=== PATIENT | male | born 1945 | race Caucasian/White ===

== ENCOUNTER 2019-01-13 10:09 | Inpatient (IN) | payer MEDICARE, OTHER ==
[~2019-01-13] VITALS: Ht 182.9 cm; Wt 83.8 kg
[~2019-01-13 10:09] MED LIST: ACET325T45 PO; ALBU2.5V3 NEB; ASPI-903 PO; BISA10SU55 RC; FENT1PAT7 TD; FER325 PO; FOLI-49 PO; FURO40TA4 PO; HYDR-4011 PO; IPRATROPIUM; LACT237L38 PO; MAGN400O19 PO; MAGN400T28 PO; MINE133E23 PR; ONDA8TAB14 PO; POTA20TA96 PO; PROC10TA10 PO; UMEC1DIS INHALATION; VITA100T7 PO
[2019-01-13] MEDS ORDERED: IPRATROPIUM (NEB) 0.5 MG/2.5 ML AMP INH STA (10:42)
[2019-01-13] MEDS ORDERED: ALBUTEROL 0.5% (NEB) 2.5 MG/0.5 ML AMP INH STA (10:42)
[2019-01-13] MEDS ORDERED: SOD CHLORIDE 0.9% 1,000 ML IV STA (10:42)
[2019-01-13] MEDS ORDERED: CEFTRIAXONE 1 GM/50 ML (PMX) 50 ML IVPB STA (10:42)
[2019-01-13] MEDS ORDERED: AZITHROMYCIN 500MG/NS (PMX) 250 ML IV STA (10:42)
[2019-01-13] MEDS ORDERED: DILTIAZEM 25 MG INJ IV STA (10:42)
[2019-01-13] MEDS ORDERED: DILTIAZEM-D5W 125MG/125ML DRIP 125 ML IV STA (10:42)
--- NOTE | 2019-01-13 12:03 | ERD ---
ER Documentation Chief Complaint Chief Complaint pt aletha OCHOA from [facility] with c/o tachycardia HPI This is a 73-year-old male with a past medical history of metastatic lung cancer to the liver, past fall with a known healing right clavicle fracture, currently residing at a [facility] facility, who is presenting for faint palpitations, significant Tachycardia, mild shortness of breath and a cough beginning this morning. The patient denies any chest pain or chest tightness or pleuritic pain. He does not endorse lightheadedness or dizziness. He does not endorse nausea or vomiting. The patient denies feeling sick recently. The patient denies fever or chills. The patient has had no headache or vision changes. The patient does not endorse neck or back pain. The patient denies abdominal pain. The patient denies changes to bowel movements or urination. The patient has had no focal deficits. The patient has had no weakness or numbness or tingling to the face or extremities. ROS All systems reviewed and are negative except as per history of present illness. Allergies Allergies: Coded Allergies: No Known Allergy (Unverified , 01/13/19) PMhx/Soc Hx Neurological Disorder: No Hx Respiratory Disorders: No Hx Cardiac Disorders: No Hx Psychiatric Problems: No Hx Miscellaneous Medical Probl: Yes (LUNG CANCER MET TO LIVER; FALL) Hx Alcohol Use: No Hx Substance Use: No Hx Tobacco Use: No Smoking Status: Never smoker FmHx Family History: No diabetes Physical Exam Vitals Vital Signs Date Temp Pulse Resp B/P (MAP) Pulse Ox O2 O2 Flow FiO2 Time Delivery Rate 01/13/19 2.0 11:16 01/13/19 98.3 93 20 124/54 100 Mask 8.0 11:15 (77) 01/13/19 134 20 98 21 11:02 01/13/19 Nasal 3 10:30 Cannula 01/13/19 98.3 141 26 123/68 97 10:20 (86) Physical Exam Const: No apparent distress, well-developed, well-nourished Head: Normocephalic, Atraumatic Eyes: Normal Conjunctiva. ENT: Normal External Ears, Nose and Mouth. Neck: Full range of motion. No meningismus. Resp: Mild increased work of breathing. Tight breath sounds with bilateral inspiratory and expiratory wheezes. Decreased breath sounds on the right. Cardio: Regular rhythm. Tachycardia. No murmurs, rubs or gallops Abd: Soft, non tender, non distended. Normal bowel sounds Skin: No petechiae or rashes Back: No midline tenderness. No CVA tenderness Ext: No cyanosis, or edema Neur: Awake and alert, oriented 4. Cranial nerves intact. No facial droop. Normal strength, sensation and coordination. Psych: Normal Mood and Affect Result Diagram: 01/13/19 1031 01/13/19 1039 Results 24 hrs Laboratory Tests Test 01/13/19 10:31 01/13/19 10:39 White Blood Count 8.6 10^3/ul Red Blood Count 4.12 10^6/ul Hemoglobin 10.1 g/dl Hematocrit 33.1 % Mean Corpuscular Volume 80.3 fl Mean Corpuscular Hemoglobin 24.5 pg Mean Corpuscular Hemoglobin Concent 30.5 g/dl Red Cell Distribution Width 17.5 % Platelet Count 410 10^3/UL Mean Platelet Volume 8.3 fl Immature Granulocytes % 0.200 % Neutrophils % 78.9 % Lymphocytes % 10.5 % Monocytes % 10.0 % Eosinophils % 0.3 % Basophils % 0.1 % Nucleated Red Blood Cells % 0.0 /100WBC Immature Granulocytes # 0.020 10^3/ul Neutrophils # 6.8 10^3/ul Lymphocytes # 0.9 10^3/ul Monocytes # 0.9 10^3/ul Eosinophils # 0.0 10^3/ul Basophils # 0.0 10^3/ul Nucleated Red Blood Cells # 0.0 10^3/ul Prothrombin Time 17.0 Sec Prothrombin Time Ratio 1.3 INR International Normalized Ratio 1.37 Sodium Level 132 mmol/L Potassium Level 3.9 mmol/L Chloride Level 101 mmol/L Carbon Dioxide Level 23 mmol/L Anion Gap 8 Blood Urea Nitrogen 16 mg/dl Creatinine 0.62 mg/dl Est Glomerular Filtrat Rate mL/min mL/min Glucose Level 183 mg/dl Calcium Level 8.1 mg/dl Troponin I < 0.012 ng/ml B-Type Natriuretic Peptide 2880 PG/ML Current Medications Medications Dose Sig/Caio Start Time Status Last (Trade) Ordered Route PRN Stop Time Admin Dose Reason Admin Diltiazem 20 mg ONCE STAT 01/13/19 DC 01/13/19 HCl IV 10:42 01/13/19 11:04 (Cardizem Iv) 10:50 Diltiazem 125 ml @ 5 ONCE STAT 01/13/19 HCl mls/hr IV 10:42 01/14/19 11:41 Sodium 1,000 ml @ Q1H STAT 01/13/19 01/13/19 Chloride 1,000 mls/hr IV 10:42 01/13/19 11:16 11:41 Ipratropium 1.5 mg ONCE STAT 01/13/19 DC 01/13/19 Wrights INH 10:42 01/13/19 11:01 (Atrovent 10:50 0.02% (Neb)) Albuterol 15 mg ONCE STAT 01/13/19 DC 01/13/19 (Proventil INH 10:42 01/13/19 11:02 0.5% (Neb)) 10:50 Ceftriaxone 50 ml @ ONCE STAT 01/13/19 DC 01/13/19 Sodium 100 mls/hr IVPB 10:42 01/13/19 11:05 11:11 Azithromycin 250 ml @ ONCE STAT 01/13/19 250 mls/hr IV 10:42 01/13/19 11:41 Procedures/MDM MDM The patient's presentation warrants further investigation. Previous medical records, if available, were reviewed. LABS The patient's laboratory testing was obtained and reviewed. No emergent treatment was required unless described below. CBC: Normocytic anemia, not emergent. No E/o systemic infection or thrombocytopenia Chemistry: No E/o severe acidosis or alkalosis or renal failure or diabetic ketoacidosis. Mild hyponatremia, likely not emergent, could be related to pneumonia. PT/INR: No E/o significant coagulopathy Lactate: 2.0 Troponin: No E/o acute ischemia BNP: Elevated EKG EKG read by me: Rate/Rhythm: Tachycardia in a pattern that appears to be a 2-1 AV block, c onsistent with atrial flutter. Intervals: Unremarkable QRS and QTc. Mary D: Normal Impression: No evidence of acute ischemia. Atrial flutter. IMAGING Imaging and Radiology interpretation reviewed. CXR FINDINGS: 8 cm right suprahilar mass is unchanged. There is increased small right pleural effusion and right basilar atelectasis. Left lung is clear. Prominent interstitial markings are present likely chronic or senescent in nature.. The Calcific atherosclerosis of the aorta is present. . The cardiomediastinal silhouette is unremarkable. The osseous structures are intact. There is a nondisplaced fracture at the right distal clavicle. IMPRESSION: Increased right pleural effusion and basilar atelectasis. Stable 8 cm right suprahilar mass. Underlying chronic interstitial lung disease. Right distal clavicular fracture. Electronically viewed and signed by .Tino Wilkes MD, on 01/13/2019 10:56 TREATMENT/DISPOSITION The patient presents for shortness of breath, palpitations and tachycardia. The patient does have symptoms concerning for a mild COPD exacerbation. The patient was treated with nebulized albuterol and ipratropium. I do not feel that steroids are required at this time. The patient was also found to be in atrial flutter. The patient was given a bolus of Cardizem and started on a Cardizem drip. The patient will require evaluation of this in the hospital. The patient does have a known left lung mass and lung cancer. The patient has had previous pleural effusions, but her right pleural effusion is increased today. This may require pleurocentesis in the hospital. The patient may benefit from pulmonology consultation. I do not see evidence of obvious pneumonia, and the patient's symptoms are unlikely to be consistent with an infectious etiology. That said, I cannot definitively rule out pneumonia superimposed on his pleural effusion. I did opt to treat the patient with Rocephin and azithromycin. I also did give the patient a liter of IV fluids. The patient's lactic is right at 2.0. I do suspect this to be elevated due to his COPD exacerbation, tachycardia and stress from his known pathology. I do not suspect sepsis and I do not feel the patient requires a full septic work-up. Additionally, the patient has a worsening pleural effusion, and I feel that a full sepsis bolus of IV fluids could be detrimental to the patient. Additionally, the patient's BNP is elevated, which could be concerning for a component of heart failure. The patient's chest xray does not reveal pneumothorax. The patient does not have a widened mediastinum and does not have signs or symptoms concerning for thoracic aortic aneurysm or dissection. The patient does not have pneumomediastinum or signs concerning for esophageal tear or rupture. The patient has no clinical or radiographic signs of pericardial effusion or tamponade. The patient does not have pneumoperitoneum and I have decreased suspicion of viscus perforation as possible referred pain. The patient is not tachypneic or hypoxic. The patient is breathing without pleuritic pain. The patient is not on hormonal therapy. The patient has no history of clotting or bleeding disorders. The patient has no calf tenderness. The patient has had no hemoptysis. I have decreased suspicion for PE. The patient's troponin is reassuring. While the patient's EKG reveals tachycardia, I do not see evidence of cardiac ischemia at this time. I have low suspicion for acute coronary syndrome. ADMISSION At this time, I feel that the patient requires admission for further evaluation and management. The patient will be admitted to panel in accordance with the patient's insurance. The patient was accepted by Dr. Navarro at 11:45 AM on January 13, 2019. DISCLAIMER Inadvertent spelling and grammatical errors are likely due to EHR/dictation software use and do not reflect on the overall quality of patient care. Note that the electronic time recorded on this note does not necessarily reflect the actual time of the patient encounter. Departure Diagnosis: Primary Impression: Atrial flutter Atrial flutter type: typical Qualified Codes: I48.3 - Typical atrial flutter Additional Impressions: COPD exacerbation Recurrent right pleural effusion History of lung cancer Normocytic anemia Hyponatremia Elevated brain natriuretic peptide (BNP) level Condition: Serious VON ESPOSITO MD Jan 13, 2019 11:45
[2019-01-13] MEDS ORDERED: ACETAMINOPHEN 325 MG TAB PO PRN (12:30)
[2019-01-13] MEDS ORDERED: ONDANSETRON 4 MG INJ IV PRN ×2 (12:30→14:30)
[2019-01-13] MEDS ORDERED: SENNA TAB PO PRN (14:30)
[2019-01-13] MEDS ORDERED: NACL 0.9% 3 ML SYG IV SCH (14:30)
[2019-01-13] MEDS ORDERED: ALBUTEROL 0.083% (NEB) 2.5 MG/3 ML AMP NEB PRN (14:30)
[2019-01-13] MEDS ORDERED: BISACODYL 10 MG SUPP PR PRN (14:30)
--- NOTE | 2019-01-13 14:52 | HP ---
Date/Time of Note Date/Time of Note DATE: 01/13/19 TIME: 14:35 Assessment/Plan VTE Prophylaxis SCD applied (from Nsg): Yes Pharmacological prophylaxis: LMWH Lines/Catheters IV Catheter Type (from Nrsg): Saline Lock Assessment/Plan Assessment/Plan 73 yo man with history of COPD, CAD s/p stent, metastatic cancer presents in rapid A flutter #Rapid A flutter - Patient has history of CAD. - For now will continue cardizem gtt and restart home meds. - First will rule out infection, blood and urine cultures ordered. Empiric ceftriaxone and azithro x24-48 hours. - Also patient appears slightly fluid overloaded. Will keep net even for now, consider diuresis in the AM depending on long goods drier recommendations. - Consulted Dr. Mcwilliams. #Metastatic cancer - Follows Dr. Montoya at [facility] - Last chemotherapy was 3 months ago. - Per POLST and discussion on admission, patient wants to be full code. - Lovenox for DVT ppx - On fentanyl patch 12 mcg for pain, norco prn breakthrough. #R pleural effusion - Likely malignant. - Currently not with severe dyspnea. Will hold off on thoracentesis. May improve with diuresis. #COPD - Continue LABA/inhaled steroid as well as PRN albuterol - Not in exacerbation. DVT: lovenox GI: PPI Family contact: Son Eliezer ([phone]) and daughter Sharon Dominique ([phone]) are next of kin. The patient is . Code: FULL Result Diagram: 01/13/19 1031 01/13/19 1039 HPI/ROS Admit Date/Time Admit Date/Time 13 January 2019 Hx of Present Illness Mr. Valverde is a 73 yo man with metastatic cancer who presents from SNF with A flutter with rapid rate. The patient is confused, he gave some history but most was taken from his son Eliezer at bedside. He has a metastatic cancer of unknown primary in the liver, brain, and lungs. He gets most of his care at [facility], his oncologist is Dr. Montoya. He got brain radiation and he had been on palliative chemotherapy but this was stopped 3 months ago. About three weeks ago was his most recent hospitalization at [facility] for a broken R collarbone. This was handled nonsurgically. His primary care doctor is Dr. Consuelo Ascencio. He was discharged to [facility] about 2 weeks ago. Previously he had lived with his sister and his son at home. The patient reports for about 1 week he gets intermittent episodes of palpitations which begin and self-resolve. He also reports increasing difficulty with swallowing. Today at the SNF he was noted to have a very rapid heart rate and had palpitations, so was sent to the emergency room. The patient also reports occasional dry cough. In the ED he was afebrile, tachy to 141, tachypenic to 26, BP 123/68. Troponin was negative. CBC and BMP unremarkable. CXR shows R pleural effusion. I spoke to the patient and his son Eliezer about his prognosis. The patient does have a signed POLST in the chart saying full code, and the patient confirmed he still wants this to be the case. There is some belief that they're waiting for the patient to "get stronger" off chemotherapy and maybe get another round in the future. The patient confirmed he wants his two adult children, Eliezer and Sharon, to be his medical decisionmakers in the event he is unable to. ROS The patient denies fever, chills, night sweats, weight loss, anorexia, headaches, vision changes, odynophagia, chest pressure, nausea, vomiting, abdominal pain, diarrhea, constipation, melena, dysuria, hematuria. PMH/Family/Social Past Medical History OR with stent placement in late . Metastatic cancer to lungs, liver, and brain. COPD Chronic cancer-related pain Medications Current Medications Diltiazem HCl 125 ml @ 5 mls/hr ONCE STAT IV Last administered on 01/13/19at 13:17; Admin Dose 5 MLS/HR; Start 01/13/19 at 10:42; Stop 01/14/19 at 11:41 Ondansetron HCl (Zofran Inj) 4 mg ER BRIDGE PRN IV NAUSEA/VOMITING; Start 01/13/19 at 12:30; Stop 01/14/19 at 12:29 Acetaminophen (Tylenol Tab) 650 mg ER BRIDGE PRN PO .MILD PAIN 1-3 OR TEMP; Start 01/13/19 at 12:30; Stop 01/14/19 at 12:29 IV Flush (NS 3 ml) 3 ml PER PROTOCOL IV ; Start 01/13/19 at 14:30; Status UNV Ondansetron HCl (Zofran Inj) 4 mg Q6H PRN IV NAUSEA/VOMITING; Start 01/13/19 at 14:30; Status UNV Pantoprazole (Protonix Tab) 40 mg DAILY@06 PO ; Start 01/14/19 at 06:00; Status UNV Enoxaparin Sodium (Lovenox) 40 mg DAILY SC ; Start 01/14/19 at 09:00; Status UNV Senna (Senokot) 2 tab BID PRN PO CONSTIPATION; Start 01/13/19 at 14:30; Status UNV Albuterol (Proventil 0.083% (Neb)) 2.5 mg Q4H PRN NEB SHORTNESS OF BREATH; Start 01/13/19 at 14:30; Status UNV Aspirin (Aspirin) 81 mg DAILY PO ; Start 01/14/19 at 09:00; Status UNV Bisacodyl (Dulcolax Supp) 10 mg DAILY PRN UT constipation; Start 01/13/19 at 14 :30; Status UNV Fentanyl (Duragesic 12 Mcg/Hr Patch) 1 patch Q72H TRANSDERM ; Start 01/13/19 at 14:30; Status UNV Folic Acid (Folic Acid) 1 mg DAILY PO ; Start 01/14/19 at 09:00; Status UNV Furosemide (Lasix) 40 mg DAILY PO ; Start 01/14/19 at 09:00; Status UNV Acetaminophen/ Hydrocodone Bitart ([place] (5/325)) 1 tab Q4 PRN PO PAIN LEVEL 6- 10; Start 01/13/19 at 14:30; Status UNV Magnesium Hydroxide (Milk Of Mag) 30 ml DAILY PO ; Start 01/14/19 at 09:00; Status UNV Miscellaneous Information 1 each DAILY INHALATION ; Start 01/14/19 at 09:00; Status UNV Ceftriaxone Sodium 50 ml @ 100 mls/hr Q24H IVPB ; Start 01/14/19 at 11:00; Status UNV Azithromycin 250 ml @ 250 mls/hr Q24H IVPB ; Start 01/14/19 at 11:00; Status UNV Coded Allergies: No Known Allergy (Unverified , 01/13/19) Past Surgical History Back surgery Lymph node biopsy Social History Previously lived with son and sister until about 1 month ago; now at SNF. He has a master's degree and previously worked as a computer systems hardware analyst. Alcohol Use: none Smoking Status: Former smoker (Previously smoked >40 pack years, quit 4 years ago) Drug Use: none Exam/Review of Systems Vital Signs Vitals Vital Signs Date Temp Pulse Resp B/P (MAP) Pulse Ox O2 O2 Flow FiO2 Time Delivery Rate 01/13/19 122 109/60 14:33 (76) 01/13/19 2.0 11:16 01/13/19 98.3 20 100 Mask 11:15 01/13/19 21 11:02 Exam Exam Gen: Frail appearing man in no acute distress. Eyes: Miotic pupils nonreactive, no icterus HEENT: Moist mucous membranes, clear oropharynx Neck: Supple, no lymphadenopathy, jugular venous distension to level of the mandible. Card: Tachycardic, no murmurs Pulm: Clear to auscultation bilaterally, scattered wheezing throughout. Abd: Soft, nontender to palpation, nondistended. Ext: Bilateral 1+ pitting edema to ankles. Skin: No jaundice. Warm, dry, well perfused. Neuro: Patient is confused. Oriented to self, oriented to year. Disoriented to month and day. Disoriented to location ("[place]"). LESLIE CESAR MD Jan 13, 2019 14:46
[2019-01-13] MEDS: FENTAnyl PATCH 12 MCG/HR TRANSDERM SCH (15:30)
--- NOTE | 2019-01-13 15:55 | CONS ---
Assessment/Plan Assessment/Plan Hospital Course (Demo Recall) New onset atrial fibrillation/flutter: Presumably started today as he was at a SNF and vitals are checked at least daily. Therefore he is a good candidate for amiodarone especially with his underlying metastatic lung cancer and short life expectancy. Rates are not well controlled and his BP is marginal. Not an anticoagulation candidate with brain mets. Acute on chronic diastolic CHF: unknown EF. On lasix at baseline. Mild CHF on exam in setting of afib Lung cancer with mets to brain/liver Right malignant pleural effusion CAD s/p PCI in the -start amiodarone drip -if converts, can d/c diltiazem drip. Otherwise continue for now -lasix 20mg IV BID -echo -further management per primary team Consultation Date/Type/Reason Admit Date/Time 13 January 2019 Date of Consultation: Jan 13, 2019 Type of Consult Cardiology Reason for Consultation atrial flutter/fib Requesting Provider: LESLIE CESAR MD Date/Time of Note DATE: 01/13/19 TIME: 15:46 Hx of Present Illness 73 yo M with a h/o lung cancer with mets to liver and brain (per brother he had XRT to the brain lesion and it is stable), CAD s/p PCI , chronic diastolic CHF, who was brought in from his SNF for tachycardia. He was at the SNF after sustaining a right clavicle fracture. He was found to have atrial fib/flutter and placed on a diltiazem drip. He is here with his son and brother. The pt is able to provide history. He denies any symptoms including chest pain, dyspnea, palpitations. No known arrhythmias in the past. Currently HR 110s-120s on diltiazem drip with SBP ~105 per hPI Past Medical History per hPI Home Meds Reported Medications Mineral Oil* (Fleet* Mineral Oil Enema) 133 Ml Oil, 133 ML [place] DAILY PRN for BOWEL PREP, ENEMA 01/13/19 Bisacodyl (Dulcolax) 10 Mg Supp.rect, 10 MG RC, SUPP.RECT 01/13/19 Magnesium Hydroxide* (Milk Of Magnesia*) 400 Mg/5 Ml Oral.susp, 30 ML PO DAILY, ML 01/13/19 Hydrocodone/Acetaminophen ([place] 5-325 Tablet) 1 Each Tablet, 1 EACH PO Q4 PRN for PAIN LEVEL 6-10, TAB 01/13/19 Ferrous Sulfate* (Ferrous Sulfate*) 325 Mg Tabec, 325 MG PO DAILY, TAB 01/13/19 Lactose-Free Food (Nutritional Supplement) 237 Ml Liquid, 60 ML PO TID 01/13/19 Acetaminophen* (Acetaminophen*) 325 Mg Tablet, 650 MG PO Q4H PRN for PAIN AND OR ELEVATED TEMP, #30 TAB 01/13/19 Vitamin E Acid Succinate (Vitamin E) 100 Unit Tablet, 200 UNIT PO DAILY, TAB 01/13/19 Umeclidinium Brm-Vilanterol Tr (Anoro Ellipta) 62.5-25 Mcg Disk.w.dev, 1 EACH INHALATION DAILY, #1 DISK 01/13/19 Prochlorperazine* (Prochlorperazine*) 10 Mg Tablet, 10 MG PO Q6H PRN for NAUSEA, TAB 01/13/19 Potassium Chloride* (Potassium Chloride*) 20 Meq Tablet.er, 20 MEQ PO DAILY, TAB.SA 01/13/19 Ondansetron (Ondansetron Odt) 8 Mg Tab.rapdis, 8 MG PO Q8 PRN for NAUSEA AND/OR VOMITING, TAB 01/13/19 Magnesium Oxide* (Magnesium Oxide*) 400 Mg Tablet, 800 MG PO DAILY, TAB 01/13/19 [Ipratropium Neb] No Conflict Check, 0.5 MG NEB Q4 PRN for SHORTNESS OF BREATH 01/13/19 Furosemide* (Furosemide*) 40 Mg Tablet, 40 MG PO DAILY, TAB 01/13/19 Folic Acid* (Folic Acid*) 1 Mg Tablet, 1 MG PO DAILY, TAB 01/13/19 Fentanyl Patch* (Duragesic Patch*) 12 Mcg/Hr Transdermal Patch, 1 PATCH TD Q72H, PATCH 01/13/19 Aspirin* (Aspirin* Chew) 81 Mg Tab.chew, 81 MG PO DAILY, TAB.CHEW 01/13/19 Albuterol Sulfate* (Albuterol Sulfate* Neb) 0.083%-3 Ml Neb, 2.5 MG NEB Q4H PRN for SHORTNESS OF BREATH, #30 VIAL 01/13/19 Medications Current Medications Diltiazem HCl 125 ml @ 5 mls/hr ONCE STAT IV Last administered on 01/13/19at 13:17; Admin Dose 5 MLS/HR; Start 01/13/19 at 10:42; Stop 01/14/19 at 11:41 Ondansetron HCl (Zofran Inj) 4 mg ER BRIDGE PRN IV NAUSEA/VOMITING; Start 01/13/19 at 12:30; Stop 01/14/19 at 12:29 Acetaminophen (Tylenol Tab) 650 mg ER BRIDGE PRN PO .MILD PAIN 1-3 OR TEMP; Start 01/13/19 at 12:30; Stop 01/14/19 at 12:29 IV Flush (NS 3 ml) 3 ml PER PROTOCOL IV ; Start 01/13/19 at 14:30 Ondansetron HCl (Zofran Inj) 4 mg Q6H PRN IV NAUSEA/VOMITING; Start 01/13/19 at 14:30 Pantoprazole (Protonix Tab) 40 mg DAILY@06 PO ; Start 01/14/19 at 06:00 Enoxaparin Sodium (Lovenox) 40 mg DAILY SC ; Start 01/14/19 at 09:00 Senna (Senokot) 2 tab BID PRN PO CONSTIPATION; Start 01/13/19 at 14:30 Albuterol (Proventil 0.083% (Neb)) 2.5 mg Q4H RESP THERAPY PRN NEB SHORTNESS OF BREATH; Start 01/13/19 at 14:30 Aspirin (Aspirin) 81 mg DAILY PO ; Start 01/14/19 at 09:00 Bisacodyl (Dulcolax Supp) 10 mg DAILY PRN [place] constipation; Start 01/13/19 at 14:30 Fentanyl (Duragesic 12 Mcg/Hr Patch) 1 patch Q72H TRANSDERM ; Start 01/13/19 at 14:30 Folic Acid (Folic Acid) 1 mg DAILY PO ; Start 01/14/19 at 09:00 Furosemide (Lasix) 40 mg DAILY PO ; Start 01/14/19 at 09:00 Acetaminophen/ Hydrocodone Bitart ([place] (5/325)) 1 tab Q4H PRN PO PAIN LEVEL 6-10; Start 01/13/19 at 14:30 Magnesium Hydroxide (Milk Of Mag) 30 ml DAILY PO ; Start 01/14/19 at 09:00 Miscellaneous Information 1 each DAILY INHALATION ; Start 01/14/19 at 09:00; Status UNV Ceftriaxone Sodium 50 ml @ 100 mls/hr Q24H IVPB ; Start 01/14/19 at 11:00 Azithromycin 250 ml @ 250 mls/hr Q24H IVPB ; Start 01/14/19 at 12:00 Allergies: Coded Allergies: No Known Allergy (Unverified , 01/13/19) Social History Alcohol Use: none Smoking Status: Former smoker (Previously smoked >40 pack years, quit 4 years ago) Drug Use: none Exam/Review of Systems Vital Signs Vitals Vital Signs Date Temp Pulse Resp B/P (MAP) Pulse Ox O2 O2 Flow FiO2 Time Delivery Rate 01/13/19 114 107/61 14:57 (76) 01/13/19 2.0 11:16 01/13/19 98.3 20 100 Mask 11:15 01/13/19 21 11:02 Exam Constitutional: alert, oriented Psych: no complaints, nl mood/affect Head: normocephalic, atraumatic Neck: jvd (9-10cm) Respiratory: crackles/rales, diminished breath sounds; No clear to auscultation Cardiovascular: edema (1+ ankles); No regular rate and rhythm (IRIR), No systolic murmur Gastrointestinal: soft, non-tender; No distended Neurological: nl mental status, nl speech Labs Result Diagram: 01/13/19 1031 01/13/19 1039 Results 24hrs Laboratory Tests Test 01/13/19 10:31 01/13/19 10:39 01/13/19 11:43 01/13/19 12:48 White Blood Count 8.6 Red Blood Count 4.12 L Hemoglobin 10.1 L Hematocrit 33.1 L Mean Corpuscular Volume 80.3 L Mean Corpuscular 24.5 L Hemoglobin Mean Corpuscular 30.5 L Hemoglobin Concent Red Cell Distribution 17.5 H Width Platelet Count 410 Mean Platelet Volume 8.3 Immature Granulocytes % 0.200 Neutrophils % 78.9 H Lymphocytes % 10.5 L Monocytes % 10.0 Eosinophils % 0.3 Basophils % 0.1 Nucleated Red Blood 0.0 Cells % Immature Granulocytes # 0.020 Neutrophils # 6.8 Lymphocytes # 0.9 Monocytes # 0.9 Eosinophils # 0.0 Basophils # 0.0 Nucleated Red Blood 0.0 Cells # Prothrombin Time 17.0 H Prothrombin Time Ratio 1.3 INR International 1.37 Normalized Ratio Sodium Level 132 L Potassium Level 3.9 Chloride Level 101 Carbon Dioxide Level 23 Anion Gap 8 Blood Urea Nitrogen 16 Creatinine 0.62 Est Glomerular Filtrat Rate mL/min Glucose Level 183 Calcium Level 8.1 L Troponin I < 0.012 B-Type Natriuretic 2880 H Peptide POC Venous Lactate 2.0 Lactic Acid Level 2.1 *H Test 01/13/19 14:56 Lactic Acid Level 1.6 Medications Medications Current Medications Diltiazem HCl 125 ml @ 5 mls/hr ONCE STAT IV Last administered on 01/13/19at 13:17; Admin Dose 5 MLS/HR; Start 01/13/19 at 10:42; Stop 01/14/19 at 11:41 Ondansetron HCl (Zofran Inj) 4 mg ER BRIDGE PRN IV NAUSEA/VOMITING; Start 01/13/19 at 12:30; Stop 01/14/19 at 12:29 Acetaminophen (Tylenol Tab) 650 mg ER BRIDGE PRN PO .MILD PAIN 1-3 OR TEMP; Start 01/13/19 at 12:30; Stop 01/14/19 at 12:29 IV Flush (NS 3 ml) 3 ml PER PROTOCOL IV ; Start 01/13/19 at 14:30 Ondansetron HCl (Zofran Inj) 4 mg Q6H PRN IV NAUSEA/VOMITING; Start 01/13/19 at 14:30 Pantoprazole (Protonix Tab) 40 mg DAILY@06 PO ; Start 01/14/19 at 06:00 Enoxaparin Sodium (Lovenox) 40 mg DAILY SC ; Start 01/14/19 at 09:00 Senna (Senokot) 2 tab BID PRN PO CONSTIPATION; Start 01/13/19 at 14:30 Albuterol (Proventil 0.083% (Neb)) 2.5 mg Q4H RESP THERAPY PRN NEB SHORTNESS OF BREATH; Start 01/13/19 at 14:30 Aspirin (Aspirin) 81 mg DAILY PO ; Start 01/14/19 at 09:00 Bisacodyl (Dulcolax Supp) 10 mg DAILY PRN [place] constipation; Start 01/13/19 at 14:30 Fentanyl (Duragesic 12 Mcg/Hr Patch) 1 patch Q72H TRANSDERM ; Start 01/13/19 at 14:30 Folic Acid (Folic Acid) 1 mg DAILY PO ; Start 01/14/19 at 09:00 Furosemide (Lasix) 40 mg DAILY PO ; Start 01/14/19 at 09:00 Acetaminophen/ Hydrocodone Bitart ([place] (5/325)) 1 tab Q4H PRN PO PAIN LEVEL 6-10; Start 01/13/19 at 14:30 Magnesium Hydroxide (Milk Of Mag) 30 ml DAILY PO ; Start 01/14/19 at 09:00 Miscellaneous Information 1 each DAILY INHALATION ; Start 01/14/19 at 09:00; Status UNV Ceftriaxone Sodium 50 ml @ 100 mls/hr Q24H IVPB ; Start 01/14/19 at 11:00 Azithromycin 250 ml @ 250 mls/hr Q24H IVPB ; Start 01/14/19 at 12:00 PAULA PRATHER Jan 13, 2019 15:55
[2019-01-13] MEDS ORDERED: AMIODARONE 900 MG in DEXTROSE 5% 482 ML IV SCH (16:00)
[2019-01-13] MEDS: FUROSEMIDE 20 MG INJ IV SCH ×2 (17:15→21:51)
[2019-01-13 18:25] VITALS: BP 107/67; PULSE 99; RESP 20
[2019-01-13 19:55] VITALS: Ht 182.9 cm; Wt 83.8 kg
[2019-01-13 19:56] VITALS: BP 96/54; PULSE 105; RESP 19
[2019-01-14] VITALS: BP 101/53; PULSE 112; RESP 18
[2019-01-14 04:00] VITALS: BP 99/54; PULSE 115; RESP 18
[2019-01-14] MEDS ORDERED: PENDING SANTYL ORDER FOR WOUND CARE XX PRN (04:00)
[2019-01-14] MEDS: PANTOPRAZOLE (EC) 40 MG TAB PO SCH ×2 (06:00→09:54)
[2019-01-14 07:30] VITALS: BP 112/51; PULSE 108; RESP 22
[2019-01-14] MEDS ORDERED: FUROSEMIDE 40 MG TAB PO SCH (09:00)
[2019-01-14] MEDS ORDERED: ENOXAPARIN 40 MG/0.4 ML SYG SC SCH (09:00)
[2019-01-14] MEDS ORDERED: NON-FORMULARY/PATIENT OWN MED (Umeclidinium Brm-Vilanterol Tr (Anoro Ellipta) 1 EACH) INHALATION SCH (09:00)
[2019-01-14] MEDS: FUROSEMIDE 20 MG INJ IV SCH ×2 (09:53→20:35)
[2019-01-14] MEDS: ASPIRIN 81 MG TAB PO SCH (09:53)
[2019-01-14] MEDS: FOLIC ACID 1 MG TAB PO SCH (09:54)
[2019-01-14] MEDS: MAGNESIUM HYDROXIDE 30ML CUP PO SCH (09:57)
--- NOTE | 2019-01-14 10:08 | RADRPT ---
Echocardiogram Report Patient Name: EAGLE SHIELDSPatient ID: [id number] : 124 (73y 8m)Study Date: 01/14/2019 7:13:43 AM Gender: MAccession #: [id number] Tech: Wilder Connolly ROBYN Location: [facility] Ref.Physician: PAULA MCWILLIAMS Height(Cm): BSA: Weight(Kg): Quality: Technically Difficult StudyOrder Physician: PAULA MCWILLIAMS Account #: Procedures: Echocardiographic Report: Transthoracic echocardiogram with complete 2D, M-Mode, and doppler examination. Indications: Atrial Fibrillation. Measurements: 2D/M Mode Doppler Measurement Value Normal Range Measurement Value Normal Range LVIDd 2D 4.4 [ 4.2 - 5.8 ] cm AV Peak Paul 1.2 [ 100.0 - 170.0 ] cm/sec LVIDs 2D 2.8 [ 2.5 - 4.0 ] cm AV Peak PG 6.0 [ 2.0 - 9.0 ] mmHg LVPWd 2D 1.1 [ 0.6 - 1.0 ] cm LVOT Peak Paul 0.8 [ 70.0 - 110.0 ] cm/sec IVSd 2D 1.2 [ 0.6 - 1.0 ] cm LVOT Peak PG 2.0 [ 2.0 - 6.0 ] mmHg AoR Diam 2D 3.3 [ 2.6 - 3.4 ] cm MV E Peak Paul 0.6 [ 60.0 - 130.0 ] cm/sec EDV 2D 90.1 [ 62.0 - 150.0 ] ml MV A Peak Paul 0.7 [ 100.0 - 120.0 ] cm/sec ESV 2D 29.8 [ 21.0 - 61.0 ] ml MV E/A 0.8 [ 0.8 - 1.5 ] ratio EF 2D 66.9 [ 52.0 - 72.0 ] percent MV Decel Time 134 [ 104 - 258 ] msec LA Dimen 2D 3.3 [ 3.0 - 4.0 ] cm Lat E` Paul 0.1 [ 10.0 - 15.0 ] cm/sec Lateral E/E` 6.8 [ 1.0 - 2.0 ] ratio MV E/A 0.8 [ 0.8 - 1.5 ] ratio TR Peak Paul 2.5 [ 100.0 - 280.0 ] cm/sec TR Peak PG 25.0 mmHg RVSP 33.0 [ 10.0 - 36.0 ] mmHg RA Pressure 8.0 mmHg Findings: Left Ventricle: Normal left ventricular systolic function. Normal left ventricular cavity size. Mild concentric left ventricular hypertrophy. Ejection fraction is visually estimated at 60 %. Tissue Doppler/Mitral Doppler indices are consistent with impaired relaxation (Stage I diastolic dysfunction). Right Ventricle: Normal right ventricular size. Normal right ventricular systolic function. Left Atrium: There is mild enlargement of left atrium. Right Atrium: The right atrium is normal in size. Mitral Valve: Normal appearance and function of the mitral valve with trace physiologic regurgitation. Aortic Valve: No significant aortic stenosis or insufficiency. Aortic cusps appear mildly calcified. Tricuspid Valve: Normal appearance of the tricuspid valve. The estimated Peak RVSP is 33 mmHg. There is trace tricuspid regurgitation. Pulmonic Valve: Pulmonic valve not well visualized. Pericardium: Small anterior pericardial effusion seen in subcostal views. Aorta: Normal aortic root. IVC: Dilated IVC with respiratory collapse consistent with elevated right atrial pressure. Conclusions: Normal left ventricular systolic function. Normal left ventricular cavity size. Mild concentric left ventricular hypertrophy. Ejection fraction is visually estimated at 60 %. Tissue Doppler/Mitral Doppler indices are consistent with impaired relaxation (Stage I diastolic dysfunction). No significant valvular stenosis or regurgitation seen. Small anterior pericardial effusion seen in subcostal views. The estimated Peak RVSP is 33 mmHg. Dilated IVC with respiratory collapse consistent with elevated right atrial pressure. Electronically Signed By: Paula Mcwilliams 2019-01-14 10:07:43 PDT
--- NOTE | 2019-01-14 10:21 | CONS ---
Assessment/Plan Assessment/Plan Hospital Course (Demo Recall) New onset atrial fibrillation/flutter: He is a good candidate for amiodarone especially with his underlying metastatic lung cancer and short life expectancy. Not an anticoagulation candidate with brain mets. Now in sinus after amiodarone Acute on chronic diastolic CHF: EF preserved. On lasix at baseline. Mild CHF on exam in setting of afib, improving Lung cancer with mets to brain/liver Right malignant pleural effusion CAD s/p PCI in the -switch to amiodarone 400mg PO BID x 1 week, then 200mg PO BID x 1 week, then 200mg daily -continue lasix 20mg IV BID, eventually switch back to outpt 40mg daily -if refuses lab draw again tomorrow, will discontinue IV diuresis as renal function and electrolytes cannot be monitored Consultation Date/Type/Reason Admit Date/Time Jan 13, 2019 at 12:06 Initial Consult Date 01/13/19 Type of Consult Cardiology Requesting Provider: LESLIE CESAR MD Date/Time of Note DATE: 01/14/19 TIME: 10:17 24 HR Interval Summary Free Text/Dictation Converted to sinus this am with rates 100-105. Removed his IV and refused labs. No complaints. Exam/Review of Systems Vital Signs Vitals Vital Signs Date Temp Pulse Resp B/P (MAP) Pulse Ox O2 O2 Flow FiO2 Time Delivery Rate 01/14/19 98.0 108 22 112/51 93 07:30 (71) 01/14/19 3.0 06:10 01/13/19 Nasal 22:11 Cannula 01/13/19 21 11:02 Intake and Output 01/13/19 01/13/19 01/14/19 1515:00 23:00 07:00 IntakeIntake Total 382.9 ml BalanceBalance 382.9 ml Exam Constitutional: alert, oriented Head: normocephalic, atraumatic Neck: jvd (8-9cm) Respiratory: crackles/rales, diminished breath sounds; No clear to auscultation Cardiovascular: edema (trace); No regular rate and rhythm (tachycardic) Gastrointestinal: soft, non-tender; No distended Neurological: nl mental status, nl speech Labs Result Diagram: 01/13/19 1031 01/13/19 1039 Results 24hrs Laboratory Tests Test 01/13/19 10:31 01/13/19 10:39 01/13/19 11:43 01/13/19 12:48 White Blood Count 8.6 Red Blood Count 4.12 L Hemoglobin 10.1 L Hematocrit 33.1 L Mean Corpuscular Volume 80.3 L Mean Corpuscular 24.5 L Hemoglobin Mean Corpuscular 30.5 L Hemoglobin Concent Red Cell Distribution 17.5 H Width Platelet Count 410 Mean Platelet Volume 8.3 Immature Granulocytes % 0.200 Neutrophils % 78.9 H Lymphocytes % 10.5 L Monocytes % 10.0 Eosinophils % 0.3 Basophils % 0.1 Nucleated Red Blood 0.0 Cells % Immature Granulocytes # 0.020 Neutrophils # 6.8 Lymphocytes # 0.9 Monocytes # 0.9 Eosinophils # 0.0 Basophils # 0.0 Nucleated Red Blood 0.0 Cells # Prothrombin Time 17.0 H Prothrombin Time Ratio 1.3 INR International 1.37 Normalized Ratio Sodium Level 132 L Potassium Level 3.9 Chloride Level 101 Carbon Dioxide Level 23 Anion Gap 8 Blood Urea Nitrogen 16 Creatinine 0.62 Est Glomerular Filtrat Rate mL/min Glucose Level 183 Calcium Level 8.1 L Troponin I < 0.012 B-Type Natriuretic 2880 H Peptide POC Venous Lactate 2.0 Lactic Acid Level 2.1 *H Test 01/13/19 14:56 01/13/19 22:15 Lactic Acid Level 1.6 Urine Color YELLOW Urine Clarity CLEAR Urine pH 6.0 Urine Specific [place] 1.009 Urine Ketones NEGATIVE Urine Nitrite NEGATIVE Urine Bilirubin NEGATIVE Urine Urobilinogen NEGATIVE Urine Leukocyte Esterase NEGATIVE Urine Hemoglobin NEGATIVE Urine Glucose NEGATIVE Urine Total Protein NEGATIVE Medications Medications Current Medications Diltiazem HCl 125 ml @ 5 mls/hr ONCE STAT IV Last administered on 01/13/19at 13:17; Admin Dose 5 MLS/HR; Start 01/13/19 at 10:42; Stop 01/14/19 at 11:41 Ondansetron HCl (Zofran Inj) 4 mg ER BRIDGE PRN IV NAUSEA/VOMITING; Start 01/13/19 at 12:30; Stop 01/14/19 at 12:29 Acetaminophen (Tylenol Tab) 650 mg ER BRIDGE PRN PO .MILD PAIN 1-3 OR TEMP; Start 01/13/19 at 12:30; Stop 01/14/19 at 12:29 IV Flush (NS 3 ml) 3 ml PER PROTOCOL IV ; Start 01/13/19 at 14:30 Ondansetron HCl (Zofran Inj) 4 mg Q6H PRN IV NAUSEA/VOMITING; Start 01/13/19 at 14:30 Pantoprazole (Protonix Tab) 40 mg DAILY@06 PO Last administered on 01/14/19 09:54; Admin Dose 40 MG; Start 01/14/19 at 06:00 Enoxaparin Sodium (Lovenox) 40 mg DAILY SC Last administered on 01/14/19 09:56; Admin Dose 40 MG; Start 01/14/19 at 09:00 Senna (Senokot) 2 tab BID PRN PO CONSTIPATION; Start 01/13/19 at 14:30 Albuterol (Proventil 0.083% (Neb)) 2.5 mg Q4H RESP THERAPY PRN NEB SHORTNESS OF BREATH Last administered on 01/13/19 22:10; Admin Dose 2.5 MG; Start 01/13/19 at 14:30 Aspirin (Aspirin) 81 mg DAILY PO Last administered on 01/14/19 09:53; Admin Dose 81 MG; Start 01/14/19 at 09:00 Bisacodyl (Dulcolax Supp) 10 mg DAILY PRN [place] constipation; Start 01/13/19 at 14:30 Fentanyl (Duragesic 12 Mcg/Hr Patch) 1 patch Q72H TRANSDERM Last administered on 01/13/19 15:30; Admin Dose 1 PATCH; Start 01/13/19 at 14:30 Folic Acid (Folic Acid) 1 mg DAILY PO Last administered on 01/14/19 09:54; Admin Dose 1 MG; Start 01/14/19 at 09:00 Acetaminophen/ Hydrocodone Bitart ([place] (5/325)) 1 tab Q4H PRN PO PAIN LEVEL 6-10; Start 01/13/19 at 14:30 Magnesium Hydroxide (Milk Of Mag) 30 ml DAILY PO Last administered on 01/14/19 09:57; Admin Dose 30 ML; Start 01/14/19 at 09:00 Miscellaneous Information 1 each DAILY INHALATION ; Start 01/14/19 at 09:00; Status UNV Ceftriaxone Sodium 50 ml @ 100 mls/hr Q24H IVPB ; Start 01/14/19 at 11:00 Azithromycin 250 ml @ 250 mls/hr Q24H IVPB ; Start 01/14/19 at 12:00 Amiodarone HCl 900 mg/Dextrose 500 ml @ 0 mls/hr Q0M IV Last administered on 01/14/19at 03:08; Admin Dose 33.3 MLS/HR; Start 01/13/19 at 16:00 Furosemide (Lasix) 20 mg BID IV Last administered on 01/14/19at 09:53; Admin Dose 20 MG; Start 01/13/19 at 16:00 Miscellaneous Information (Pending [facility] Order For Wound Care) This patient arias... PRN PRN XX WOUND CARE; Start 01/14/19 at 04:00 PAULA PRATHER Jan 14, 2019 10:21
[2019-01-14] MEDS ORDERED: CEFTRIAXONE 1 GM/50 ML (PMX) 50 ML IVPB SCH (11:00)
[2019-01-14 11:07] VITALS: BP 111/59; PULSE 109; RESP 22
--- NOTE | 2019-01-14 11:35 | PN ---
Date/Time of Note Date/Time of Note DATE: 01/14/19 TIME: 11:31 Assessment/Plan VTE Prophylaxis Risk score (from Ns)>0 risk: 5 SCD applied (from Ns): Yes Pharmacological prophylaxis: NA/contraindicated Pharm contraindication: low risk/ambulating Lines/Catheters IV Catheter Type (from Nrs): Saline Lock Urinary Cath still in place: No Assessment/Plan Assessment/Plan 73 yo man with history of COPD, CAD s/p stent, metastatic cancer presents in rapid A flutter #Rapid A flutter - Patient has history of CAD. - Infection unlikely. Urine culture negative. Will stop antibiotics. - Consulted Dr. Mcwilliams. - Diuresis lasix IV BID - On amiodarone gtt, will plan for discharge on amiodarone. #Metastatic cancer - Follows Dr. Montoya at [facility] - Last chemotherapy was 3 months ago. - Per POLST and discussion on admission, patient wants to be full code. - On fentanyl patch 12 mcg for pain, norco prn breakthrough. #R pleural effusion - Likely malignant. - Currently not with severe dyspnea. Will hold off on thoracentesis. May improve with diuresis. #COPD - Continue LABA/inhaled steroid as well as PRN albuterol - Not in exacerbation. DVT: SCDs GI: PPI Family contact: Son Eliezer ([phone]) and daughter Sharon Dominique ([phone]) are next of kin. The patient is . Code: FULL Result Diagram: 01/13/19 1031 01/13/19 1039 Results 24hrs Subjective 24 Hr Interval Summary Free Text/Dictation No acute overnight events. The patient is doing well. No complaints. After starting amiodarone; his heart rate is now in low 100s and he converted to normal sinus. Exam/Review of Systems Exam Vitals Vital Signs Date Temp Pulse Resp B/P (MAP) Pulse Ox O2 O2 Flow FiO2 Time Delivery Rate 01/14/19 98.0 109 22 111/59 95 Room Air 11:07 (76) 01/14/19 3.0 06:10 01/13/19 21 11:02 Intake and Output 01/13/19 01/13/19 01/14/19 1515:00 23:00 07:00 IntakeIntake Total 382.9 ml BalanceBalance 382.9 ml Exam Gen: Frail appearing man in no acute distress. Eyes: Miotic pupils nonreactive, no icterus HEENT: Moist mucous membranes, clear oropharynx Neck: Supple, no lymphadenopathy Card: Tachycardic, no murmurs Pulm: Clear to auscultation bilaterally, scattered wheezing throughout. Abd: Soft, nontender to palpation, nondistended. Ext: Bilateral 1+ pitting edema to ankles. Skin: No jaundice. Warm, dry, well perfused. Neuro: Patient is confused. Disoriented to year, month, day, location. He thinks he's been in the hospital for 3 days. Results Results 24hrs Laboratory Tests Test 01/13/19 11:43 01/13/19 12:48 01/13/19 14:56 01/13/19 22:15 POC Venous Lactate 2.0 Lactic Acid Level 2.1 *H 1.6 Urine Color YELLOW Urine Clarity CLEAR Urine pH 6.0 Urine Specific [place] 1.009 Urine Ketones NEGATIVE Urine Nitrite NEGATIVE Urine Bilirubin NEGATIVE Urine Urobilinogen NEGATIVE Urine Leukocyte Esterase NEGATIVE Urine Hemoglobin NEGATIVE Urine Glucose NEGATIVE Urine Total Protein NEGATIVE Medications Medication Current Medications IV Flush (NS 3 ml) 3 ml PER PROTOCOL IV ; Start 01/13/19 at 14:30 Ondansetron HCl (Zofran Inj) 4 mg Q6H PRN IV NAUSEA/VOMITING; Start 01/13/19 at 14:30 Pantoprazole (Protonix Tab) 40 mg DAILY@06 PO Last administered on 01/14/19at 09:54; Admin Dose 40 MG; Start 01/14/19 at 06:00 Enoxaparin Sodium (Lovenox) 40 mg DAILY SC Last administered on 01/14/19at 09:56; Admin Dose 40 MG; Start 01/14/19 at 09:00 Senna (Senokot) 2 tab BID PRN PO CONSTIPATION; Start 01/13/19 at 14:30 Albuterol (Proventil 0.083% (Neb)) 2.5 mg Q4H RESP THERAPY PRN NEB SHORTNESS OF BREATH Last administered on 01/13/19at 22:10; Admin Dose 2.5 MG; Start 01/13/19 at 14:30 Aspirin (Aspirin) 81 mg DAILY PO Last administered on 01/14/19at 09:53; Admin Dose 81 MG; Start 01/14/19 at 09:00 Bisacodyl (Dulcolax Supp) 10 mg DAILY PRN [place] constipation; Start 01/13/19 at 14:30 Fentanyl (Duragesic 12 Mcg/Hr Patch) 1 patch Q72H TRANSDERM Last administered on 01/13/19at 15:30; Admin Dose 1 PATCH; Start 01/13/19 at 14:30 Folic Acid (Folic Acid) 1 mg DAILY PO Last administered on 01/14/19at 09:54; Admin Dose 1 MG; Start 01/14/19 at 09:00 Acetaminophen/ Hydrocodone Bitart ([place] (5/325)) 1 tab Q4H PRN PO PAIN LEVEL 6-10; Start 01/13/19 at 14:30 Magnesium Hydroxide (Milk Of Mag) 30 ml DAILY PO Last administered on 01/14/19at 09:57; Admin Dose 30 ML; Start 01/14/19 at 09:00 Miscellaneous Information 1 each DAILY INHALATION ; Start 01/14/19 at 09:00; Status UNV Ceftriaxone Sodium 50 ml @ 100 mls/hr Q24H IVPB ; Start 01/14/19 at 11:00 Azithromycin 250 ml @ 250 mls/hr Q24H IVPB ; Start 01/14/19 at 12:00 Furosemide (Lasix) 20 mg BID IV Last administered on 01/14/19at 09:53; Admin Dose 20 MG; Start 01/13/19 at 16:00 Miscellaneous Information [facility]) This patient arias... PRN PRN XX WOUND CARE; Start 01/14/19 at 04:00 Amiodarone HCl (Cordarone) 400 mg BID PO ; Start 01/14/19 at 10:30 LESLIE CESAR MD Jan 14, 2019 11:35
[2019-01-14] MEDS: AMIODARONE 200 MG TAB PO SCH ×2 (11:56→20:35)
[2019-01-14] MEDS ORDERED: AZITHROMYCIN 500MG/NS (PMX) 250 ML IVPB SCH (12:00)
[2019-01-14 15:08] VITALS: BP 105/58; PULSE 104; RESP 18
[2019-01-14] MEDS: [UNRECOGNIZED DRUG - OTHER] XX SCH ×2 (15:30→23:30)
[2019-01-14 20:00] VITALS: BP 110/58; PULSE 107; RESP 19
[2019-01-15] VITALS (7 sets, daily range): BP systolic 103–124; BP diastolic 53–58; PULSE 93–105; RESP 18–22
[2019-01-15] MEDS: HYDROCODONE/APAP (5/325) TAB PO PRN ×2 (05:23→14:14)
[2019-01-15] MEDS: [UNRECOGNIZED DRUG - OTHER] XX SCH ×3 (07:30→23:30)
[2019-01-15] MEDS ORDERED: POTASSIUM CHLORIDE 20 MEQ POWDER FOR ORAL SOLN PO ONE (07:30)
--- NOTE | 2019-01-15 07:31 | CONS ---
Assessment/Plan Assessment/Plan Hospital Course (Demo Recall) New onset atrial fibrillation/flutter: He is a good candidate for amiodarone especially with his underlying metastatic lung cancer and short life expectancy. Not an anticoagulation candidate with brain mets. Now in sinus after amiodarone Acute on chronic diastolic CHF: EF preserved. On lasix at baseline. Mild CHF on exam in setting of afib. Resolved Lung cancer with mets to brain/liver Right malignant pleural effusion CAD s/p PCI in the -amiodarone 400mg PO BID x 1 week (01/21), then 200mg PO BID x 1 week (01/28), then 200mg daily -switch back to outpt lasix 40mg daily -start metoprolol succ 25mg daily -ok for d/c from cardiac perspective with above meds Consultation Date/Type/Reason Admit Date/Time Jan 13, 2019 at 12:06 Initial Consult Date 01/13/19 Type of Consult Cardiology Requesting Provider: LESLIE CESAR MD Date/Time of Note DATE: 01/15/19 TIME: 07:29 24 HR Interval Summary Free Text/Dictation Remains in sinus. No complaints. Exam/Review of Systems Vital Signs Vitals Vital Signs Date Temp Pulse Resp B/P (MAP) Pulse Ox O2 O2 Flow FiO2 Time Delivery Rate 01/15/19 98.8 102 18 105/55 95 04:00 (72) 01/15/19 3.0 00:42 01/14/19 Nasal 21:34 Cannula 01/13/19 21 11:02 Intake and Output 01/14/19 01/14/19 01/15/19 1515:00 23:00 07:00 IntakeIntake Total 600 ml 200 ml OutputOutput Total 8 ml BalanceBalance 592 ml 200 ml Exam Constitutional: alert, oriented Psych: no complaints, nl mood/affect Head: normocephalic, atraumatic Neck: No jvd Respiratory: diminished breath sounds; No clear to auscultation Cardiovascular: regular rate and rhythm, edema (trace), systolic murmur (2/6 CHICO) Gastrointestinal: soft, non-tender; No distended Neurological: nl mental status, nl speech Labs Result Diagram: 01/14/19 1447 01/14/19 1447 Results 24hrs Laboratory Tests Test 01/14/19 14:47 White Blood Count 9.5 Red Blood Count 3.71 L Hemoglobin 9.3 L Hematocrit 30.3 L Mean Corpuscular Volume 81.7 L Mean Corpuscular Hemoglobin 25.1 L Mean Corpuscular Hemoglobin Concent 30.7 L Red Cell Distribution Width 17.3 H Platelet Count 392 Mean Platelet Volume 8.2 Immature Granulocytes % 0.300 Neutrophils % 79.9 H Lymphocytes % 9.0 L Monocytes % 10.3 Eosinophils % 0.4 Basophils % 0.1 Nucleated Red Blood Cells % 0.0 Immature Granulocytes # 0.030 Neutrophils # 7.6 H Lymphocytes # 0.9 Monocytes # 1.0 H Eosinophils # 0.0 Basophils # 0.0 Nucleated Red Blood Cells # 0.0 Sodium Level 131 L Potassium Level 3.4 L Chloride Level 101 Carbon Dioxide Level 23 Anion Gap 7 Blood Urea Nitrogen 15 Creatinine 0.63 Est Glomerular Filtrat Rate mL/min Glucose Level 158 Hemoglobin A1c 5.4 Calcium Level 7.6 L Phosphorus Level 2.9 Magnesium Level 2.4 Total Bilirubin 0.4 Direct Bilirubin 0.00 Indirect Bilirubin 0.4 Aspartate Amino Transf (AST/SGOT) 26 Alanine Aminotransferase (ALT/SGPT) 31 Alkaline Phosphatase 133 H Total Protein 6.6 Albumin 3.0 L Globulin 3.60 H Albumin/Globulin Ratio 0.83 Thyroid Stimulating Hormone (TSH) 2.260 Medications Medications Current Medications IV Flush (NS 3 ml) 3 ml PER PROTOCOL IV ; Start 01/13/19 at 14:30 Ondansetron HCl (Zofran Inj) 4 mg Q6H PRN IV NAUSEA/VOMITING; Start 01/13/19 at 14:30 Pantoprazole (Protonix Tab) 40 mg DAILY@06 PO Last administered on 01/14/19at 09:54; Admin Dose 40 MG; Start 01/14/19 at 06:00 Senna (Senokot) 2 tab BID PRN PO CONSTIPATION; Start 01/13/19 at 14:30 Albuterol (Proventil 0.083% (Neb)) 2.5 mg Q4H RESP THERAPY PRN NEB SHORTNESS OF BREATH Last administered on 01/13/19at 22:10; Admin Dose 2.5 MG; Start 01/13/19 at 14:30 Aspirin (Aspirin) 81 mg DAILY PO Last administered on 01/14/19at 09:53; Admin Dose 81 MG; Start 01/14/19 at 09:00 Bisacodyl (Dulcolax Supp) 10 mg DAILY PRN [place] constipation; Start 01/13/19 at 14:30 Fentanyl (Duragesic 12 Mcg/Hr Patch) 1 patch Q72H TRANSDERM Last administered on 01/13/19 15:30; Admin Dose 1 PATCH; Start 01/13/19 at 14:30 Folic Acid (Folic Acid) 1 mg DAILY PO Last administered on 01/14/19 09:54; Admin Dose 1 MG; Start 01/14/19 at 09:00 Acetaminophen/ Hydrocodone Bitart ([place] (5/325)) 1 tab Q4H PRN PO PAIN LEVEL 6-10 Last administered on 01/15/19 05:23; Admin Dose 1 TAB; Start 01/13/19 at 14:30 Magnesium Hydroxide (Milk Of Mag) 30 ml DAILY PO Last administered on 01/14/19 09:57; Admin Dose 30 ML; Start 01/14/19 at 09:00 Miscellaneous Information 1 each DAILY INHALATION ; Start 01/14/19 at 09:00; Status UNV Furosemide (Lasix) 20 mg BID IV Last administered on 01/14/19at 20:35; Admin Dose 20 MG; Start 01/13/19 at 16:00 Miscellaneous Information [facility] This patient arias... PRN PRN XX WOUND CARE; Start 01/14/19 at 04:00 Amiodarone HCl (Cordarone) 400 mg BID PO Last administered on 01/14/19 20:35; Admin Dose 400 MG; Start 01/14/19 at 10:30 Miscellaneous Information (*Order Clarification Bulletin) Umeclidinium Brm- Vilanterol Tr (An... Q8H XX ; Start 01/14/19 at 15:30 Metoprolol Succinate (Toprol Xl) 25 mg DAILY PO ; Start 01/15/19 at 09:00 PAULA PRATHER Jan 15, 2019 07:31
[2019-01-15] MEDS: ASPIRIN 81 MG TAB PO SCH (08:51)
[2019-01-15] MEDS: FOLIC ACID 1 MG TAB PO SCH (08:51)
[2019-01-15] MEDS: MAGNESIUM HYDROXIDE 30ML CUP PO SCH (08:51)
[2019-01-15] MEDS: FUROSEMIDE 40 MG TAB PO SCH (08:52)
[2019-01-15] MEDS: METOPROLOL (XL) 25 MG TAB PO SCH (08:53)
[2019-01-15] MEDS: AMIODARONE 200 MG TAB PO SCH ×2 (08:53→21:34)
[2019-01-16] MEDS: HYDROCODONE/APAP (5/325) TAB PO PRN ×4 (01:19→21:23)
[2019-01-16 04:06] VITALS: BP 122/57; PULSE 101; RESP 20
[2019-01-16] MEDS: PANTOPRAZOLE (EC) 40 MG TAB PO SCH (06:27)
[2019-01-16 07:14] VITALS: BP 125/59; PULSE 99; RESP 20
[2019-01-16] MEDS: [UNRECOGNIZED DRUG - OTHER] XX SCH ×3 (07:30→23:30)
[2019-01-16] MEDS: MAGNESIUM HYDROXIDE 30ML CUP PO SCH (09:04)
[2019-01-16] MEDS: ASPIRIN 81 MG TAB PO SCH (09:04)
[2019-01-16] MEDS: FUROSEMIDE 40 MG TAB PO SCH (09:04)
[2019-01-16] MEDS: FOLIC ACID 1 MG TAB PO SCH (09:04)
[2019-01-16] MEDS: AMIODARONE 200 MG TAB PO SCH ×2 (09:05→21:16)
[2019-01-16] MEDS: METOPROLOL (XL) 25 MG TAB PO SCH (09:05)
--- NOTE | 2019-01-16 10:43 | PN ---
Date/Time of Note Date/Time of Note DATE: 01/16/19 TIME: 10:41 Assessment/Plan VTE Prophylaxis Risk score (from Ns)>0 risk: 5 SCD applied (from Ns): Yes Pharmacological prophylaxis: NA/contraindicated Pharm contraindication: low risk/ambulating Lines/Catheters IV Catheter Type (from Nrs): Saline Lock Urinary Cath still in place: No Assessment/Plan Assessment/Plan LATE ENTRY PROGRESS NOTE FOR 01/15/19 73 yo man with history of COPD, CAD s/p stent, metastatic cancer presents in rapid A flutter #Rapid A flutter - Patient has history of CAD. - Consulted Dr. Mcwilliams. - Euvolemic; resume previous dose of oral lasix - Now on amiodarone; converted back to normal sinus. #Metastatic cancer - Follows Dr. Montoya at [facility] - Last chemotherapy was 3 months ago. - Per POLST and discussion on admission, patient wants to be full code. - On fentanyl patch 12 mcg for pain, norco prn breakthrough. #R pleural effusion - Likely malignant. - Currently not with severe dyspnea. Will hold off on thoracentesis. May improve with diuresis. #COPD - Continue LABA/inhaled steroid as well as PRN albuterol - Not in exacerbation. DVT: SCDs GI: PPI Family contact: Son Eliezer ([phone]) and daughter Sharon Dominique ([phone]) are next of kin. The patient is . Code: FULL Dispo: Medically clear for discharge. Result Diagram: 01/14/19 1447 01/14/19 1447 Subjective 24 Hr Interval Summary Free Text/Dictation No acute overnight events. Patient doing well. Exam/Review of Systems Exam Vitals Vital Signs Date Temp Pulse Resp B/P (MAP) Pulse Ox O2 O2 Flow FiO2 Time Delivery Rate 01/16/19 Nasal 2.0 07:30 Cannula 01/16/19 98.7 99 20 125/59 95 07:14 (81) 01/13/19 21 11:02 Intake and Output 01/15/19 01/15/19 01/16/19 1515:00 23:00 07:00 IntakeIntake Total 400 ml 200 ml OutputOutput Total 4 ml BalanceBalance 396 ml 200 ml Exam Gen: Frail appearing man in no acute distress. Eyes: Miotic pupils nonreactive, no icterus HEENT: Moist mucous membranes, clear oropharynx Neck: Supple, no lymphadenopathy Card: Tachycardic, no murmurs Pulm: Clear to auscultation bilaterally, scattered wheezing throughout. Abd: Soft, nontender to palpation, nondistended. Ext: Bilateral 1+ pitting edema to ankles. Skin: No jaundice. Warm, dry, well perfused. Neuro: Patient is confused. Disoriented to year, month, day, location. Medications Medication Current Medications IV Flush (NS 3 ml) 3 ml PER PROTOCOL IV ; Start 01/13/19 at 14:30 Ondansetron HCl (Zofran Inj) 4 mg Q6H PRN IV NAUSEA/VOMITING; Start 01/13/19 at 14:30 Pantoprazole (Protonix Tab) 40 mg DAILY@06 PO Last administered on 01/16/19at 06:27; Admin Dose 40 MG; Start 01/14/19 at 06:00 Senna (Senokot) 2 tab BID PRN PO CONSTIPATION; Start 01/13/19 at 14:30 Albuterol (Proventil 0.083% (Neb)) 2.5 mg Q4H RESP THERAPY PRN NEB SHORTNESS OF BREATH Last administered on 01/13/19at 22:10; Admin Dose 2.5 MG; Start 01/13/19 at 14:30 Aspirin (Aspirin) 81 mg DAILY PO Last administered on 01/16/19at 09:04; Admin Dose 81 MG; Start 01/14/19 at 09:00 Bisacodyl (Dulcolax Supp) [address] constipation; Start 01/13/19 at 14:30 Fentanyl (Duragesic 12 Mcg/Hr Patch) 1 patch Q72H TRANSDERM Last administered on 01/13/19at 15:30; Admin Dose 1 PATCH; Start 01/13/19 at 14:30 Folic Acid (Folic Acid) 1 mg DAILY PO Last administered on 01/16/19at 09:04; Admin Dose 1 MG; Start 01/14/19 at 09:00 Acetaminophen/ Hydrocodone Bitart ([place] (5/325)) 1 tab Q4H PRN PO PAIN LEVEL 6-10 Last administered on 01/16/19at 01:19; Admin Dose 1 TAB; Start 01/13/19 at 14:30 Magnesium Hydroxide (Milk Of Mag) 30 ml DAILY PO Last administered on 01/16/19at 09:04; Admin Dose 30 ML; Start 01/14/19 at 09:00 Miscellaneous Information 1 each DAILY INHALATION ; Start 01/14/19 at 09:00; Status UNV Miscellaneous Information (Pending Santyl Order For Wound Care) This patient arias... PRN PRN XX WOUND CARE; Start 01/14/19 at 04:00 Amiodarone HCl (Cordarone) 400 mg BID PO Last administered on 01/16/19at 09:05; Admin Dose 400 MG; Start 01/14/19 at 10:30 Miscellaneous Information (*Order Clarification Bulletin) Umeclidinium Brm- Vilanterol Tr (An... Q8H XX ; Start 01/14/19 at 15:30 Metoprolol Succinate (Toprol Xl) 25 mg DAILY PO Last administered on 01/16/19at 09:05; Admin Dose 25 MG; Start 01/15/19 at 09:00 Furosemide (Lasix) 40 mg DAILY PO Last administered on 01/16/19at 09:04; Admin Dose 40 MG; Start 01/15/19 at 09:00 LESLIE CESAR MD Jan 16, 2019 10:43
[2019-01-16 11:18] VITALS: BP 124/60; PULSE 86; RESP 20
--- NOTE | 2019-01-16 11:34 | CONS ---
Assessment/Plan Assessment/Plan Hospital Course (Demo Recall) New onset atrial fibrillation/flutter: He is a good candidate for amiodarone especially with his underlying metastatic lung cancer and short life expectancy. Not an anticoagulation candidate with brain mets. Now in sinus after amiodarone Acute on chronic diastolic CHF: EF preserved. On lasix at baseline. Mild CHF on exam in setting of afib. Resolved Lung cancer with mets to brain/liver Right malignant pleural effusion CAD s/p PCI in the -amiodarone 400mg PO BID x 1 week (01/21), then 200mg PO BID x 1 week (01/28), then 200mg daily -lasix 40mg daily -metoprolol succ 25mg daily -ok for d/c from cardiac perspective with above meds Consultation Date/Type/Reason Admit Date/Time Jan 13, 2019 at 12:06 Initial Consult Date 01/13/19 Type of Consult Cardiology Requesting Provider: LESLIE CESAR MD Date/Time of Note DATE: 01/16/19 TIME: 11:33 24 HR Interval Summary Free Text/Dictation Doing well. Remains in sinus. No complaints. Plan is for transfer to SNF Exam/Review of Systems Vital Signs Vitals Vital Signs Date Temp Pulse Resp B/P (MAP) Pulse Ox O2 O2 Flow FiO2 Time Delivery Rate 01/16/19 98.3 86 20 124/60 95 Room Air 11:18 (81) 01/16/19 2.0 07:30 01/13/19 21 11:02 Intake and Output 01/15/19 01/15/19 01/16/19 1414:59 22:59 06:59 IntakeIntake Total 400 ml 200 ml OutputOutput Total 4 ml BalanceBalance 396 ml 200 ml Exam Constitutional: alert, oriented Psych: no complaints, nl mood/affect Head: normocephalic, atraumatic Neck: jvd (7-8cm) Respiratory: No clear to auscultation Cardiovascular: regular rate and rhythm, edema (trace), systolic murmur (2/6 CHICO) Gastrointestinal: soft, non-tender; No distended Neurological: nl mental status, nl speech Labs Result Diagram: 01/14/19 1447 01/14/19 1447 Medications Medications Current Medications IV Flush (NS 3 ml) 3 ml PER PROTOCOL IV ; Start 01/13/19 at 14:30 Ondansetron HCl (Zofran Inj) 4 mg Q6H PRN IV NAUSEA/VOMITING; Start 01/13/19 at 14:30 Pantoprazole (Protonix Tab) 40 mg DAILY@06 PO Last administered on 01/16/19 06:27; Admin Dose 40 MG; Start 01/14/19 at 06:00 Senna (Senokot) 2 tab BID PRN PO CONSTIPATION; Start 01/13/19 at 14:30 Albuterol (Proventil 0.083% (Neb)) 2.5 mg Q4H RESP THERAPY PRN NEB SHORTNESS OF BREATH Last administered on 01/13/19 22:10; Admin Dose 2.5 MG; Start 01/13/19 at 14:30 Aspirin (Aspirin) 81 mg DAILY PO Last administered on 01/16/19 09:04; Admin Dose 81 MG; Start 01/14/19 at 09:00 Bisacodyl (Dulcolax Supp) [address] constipation; Start 01/13/19 at 14:30 Fentanyl (Duragesic 12 Mcg/Hr Patch) 1 patch Q72H TRANSDERM Last administered on 01/13/19 15:30; Admin Dose 1 PATCH; Start 01/13/19 at 14:30 Folic Acid (Folic Acid) 1 mg DAILY PO Last administered on 01/16/19 09:04; Admin Dose 1 MG; Start 01/14/19 at 09:00 Acetaminophen/ Hydrocodone Bitart ([place] (5/325)) 1 tab Q4H PRN PO PAIN LEVEL 6-10 Last administered on 01/16/19 01:19; Admin Dose 1 TAB; Start 01/13/19 at 14:30 Magnesium Hydroxide (Milk Of Mag) 30 ml DAILY PO Last administered on 01/16/19 09:04; Admin Dose 30 ML; Start 01/14/19 at 09:00 Miscellaneous Information 1 each DAILY INHALATION ; Start 01/14/19 at 09:00; Status UNV Miscellaneous Information (Pending Santyl Order For Wound Care) This patient arias... PRN PRN XX WOUND CARE; Start 01/14/19 at 04:00 Amiodarone HCl (Cordarone) 400 mg BID PO Last administered on 01/16/19 09:05; Admin Dose 400 MG; Start 01/14/19 at 10:30 Miscellaneous Information (*Order Clarification Bulletin) Umeclidinium Brm- Vilanterol Tr (An... Q8H XX ; Start 01/14/19 at 15:30 Metoprolol Succinate (Toprol Xl) 25 mg DAILY PO Last administered on 01/16/19at 09:05; Admin Dose 25 MG; Start 01/15/19 at 09:00 Furosemide (Lasix) 40 mg DAILY PO Last administered on 01/16/19at 09:04; Admin Dose 40 MG; Start 01/15/19 at 09:00 PAULA PRATHER Jan 16, 2019 11:34
[2019-01-16 15:01] VITALS: BP 122/64; PULSE 88; RESP 20
--- NOTE | 2019-01-16 16:08 | PN ---
Date/Time of Note Date/Time of Note DATE: 01/16/19 TIME: 16:06 Assessment/Plan VTE Prophylaxis Risk score (from Nsg)>0 risk: 5 SCD applied (from Ns): Yes Pharmacological prophylaxis: NA/contraindicated Pharm contraindication: low risk/ambulating Lines/Catheters IV Catheter Type (from Nrs): Saline Lock Urinary Cath still in place: No Assessment/Plan Assessment/Plan 73 yo man with history of COPD, CAD s/p stent, metastatic cancer presents in rapid A flutter #Rapid A flutter - Patient has history of CAD. - Consulted Dr. Mcwilliams. - Euvolemic; resume previous dose of oral lasix - Now on amiodarone; converted back to normal sinus. #Metastatic cancer - Follows Dr. Montoya at [facility] - Last chemotherapy was 3 months ago. - Per POLST and discussion on admission, patient wants to be full code. - On fentanyl patch 12 mcg for pain, norco prn breakthrough. #R pleural effusion - Likely malignant. - Currently not with dyspnea. Will hold off on thoracentesis. #COPD - Continue LABA/inhaled steroid as well as PRN albuterol - Not in exacerbation. DVT: SCDs GI: PPI Family contact: Son Eliezer ([phone]) and daughter Sharon Dominique ([phone]) are next of kin. The patient is . Code: FULL Dispo: Medically clear for discharge back to [facility]. Result Diagram: 01/14/19 1447 01/14/19 1447 Subjective 24 Hr Interval Summary Free Text/Dictation No acute overnight events. Patient doing well. Exam/Review of Systems Exam Vitals Vital Signs Date Temp Pulse Resp B/P (MAP) Pulse Ox O2 O2 Flow FiO2 Time Delivery Rate 01/16/19 3.0 15:05 01/16/19 98.0 88 20 122/64 98 Nasal 15:01 (83) Cannula 01/13/19 21 11:02 Intake and Output 01/15/19 01/15/19 01/16/19 1515:00 23:00 07:00 IntakeIntake Total 400 ml 200 ml OutputOutput Total 4 ml BalanceBalance 396 ml 200 ml Exam Gen: Frail appearing man in no acute distress. Eyes: Miotic pupils nonreactive, no icterus HEENT: Moist mucous membranes, clear oropharynx Neck: Supple, no lymphadenopathy Card: Tachycardic, no murmurs Pulm: Clear to auscultation bilaterally, scattered wheezing throughout. Abd: Soft, nontender to palpation, nondistended. Ext: Bilateral 1+ pitting edema to ankles. Skin: No jaundice. Warm, dry, well perfused. Neuro: Patient is confused. Disoriented to year, month, day, location. Medications Medication Current Medications IV Flush (NS 3 ml) 3 ml PER PROTOCOL IV ; Start 01/13/19 at 14:30 Ondansetron HCl (Zofran Inj) 4 mg Q6H PRN IV NAUSEA/VOMITING; Start 01/13/19 at 14:30 Pantoprazole (Protonix Tab) 40 mg DAILY@06 PO Last administered on 01/16/19at 06:27; Admin Dose 40 MG; Start 01/14/19 at 06:00 Senna (Senokot) 2 tab BID PRN PO CONSTIPATION; Start 01/13/19 at 14:30 Albuterol (Proventil 0.083% (Neb)) 2.5 mg Q4H RESP THERAPY PRN NEB SHORTNESS OF BREATH Last administered on 01/13/19at 22:10; Admin Dose 2.5 MG; Start 01/13/19 at 14:30 Aspirin (Aspirin) 81 mg DAILY PO Last administered on 01/16/19at 09:04; Admin Dose 81 MG; Start 01/14/19 at 09:00 Bisacodyl (Dulcolax Supp) 10 mg DAILY PRN [place] constipation; Start 01/13/19 at 14:30 Fentanyl (Duragesic 12 Mcg/Hr Patch) 1 patch Q72H TRANSDERM Last administered on 01/13/19at 15:30; Admin Dose 1 PATCH; Start 01/13/19 at 14:30 Folic Acid (Folic Acid) 1 mg DAILY PO Last administered on 01/16/19at 09:04; Admin Dose 1 MG; Start 01/14/19 at 09:00 Acetaminophen/ Hydrocodone Bitart ([place] (5/325)) 1 tab Q4H PRN PO PAIN LEVEL 6-10 Last administered on 01/16/19at 15:15; Admin Dose 1 TAB; Start 01/13/19 at 14:30 Magnesium Hydroxide (Milk Of Mag) 30 ml DAILY PO Last administered on 01/16/19 09:04; Admin Dose 30 ML; Start 01/14/19 at 09:00 Miscellaneous Information 1 each DAILY INHALATION ; Start 01/14/19 at 09:00; Status UNV Miscellaneous Information (Pending Santyl Order For Wound Care) This patient arias... PRN PRN XX WOUND CARE; Start 01/14/19 at 04:00 Amiodarone HCl (Cordarone) 400 mg BID PO Last administered on 01/16/19at 09:05; Admin Dose 400 MG; Start 01/14/19 at 10:30 Miscellaneous Information (*Order Clarification Bulletin) Umeclidinium Brm- Vilanterol Tr (An... Q8H XX ; Start 01/14/19 at 15:30 Metoprolol Succinate (Toprol Xl) 25 mg DAILY PO Last administered on 01/16/19 09:05; Admin Dose 25 MG; Start 01/15/19 at 09:00 Furosemide (Lasix) 40 mg DAILY PO Last administered on 01/16/19at 09:04; Admin Dose 40 MG; Start 01/15/19 at 09:00 LESLIE CESAR MD Jan 16, 2019 16:08
[2019-01-16] MEDS: FENTAnyl PATCH 12 MCG/HR TRANSDERM SCH (16:51)
[2019-01-16 19:47] VITALS: BP 118/60; PULSE 87; RESP 18
[2019-01-17 01:19] VITALS: BP 123/63; PULSE 88; RESP 20
[2019-01-17] MEDS: HYDROCODONE/APAP (5/325) TAB PO PRN ×4 (01:43→20:52)
[2019-01-17 04:35] VITALS: BP 133/60; PULSE 89; RESP 18
[2019-01-17] MEDS: PANTOPRAZOLE (EC) 40 MG TAB PO SCH (05:42)
[2019-01-17] MEDS: [UNRECOGNIZED DRUG - OTHER] XX SCH ×3 (07:30→23:30)
--- NOTE | 2019-01-17 07:30 | CONS ---
Assessment/Plan Assessment/Plan Hospital Course (Demo Recall) New onset atrial fibrillation/flutter: He is a good candidate for amiodarone especially with his underlying metastatic lung cancer and short life expectancy. Not an anticoagulation candidate with brain mets. Now in sinus after amiodarone Acute on chronic diastolic CHF: EF preserved. On lasix at baseline. Mild CHF on exam in setting of afib. Resolved Lung cancer with mets to brain/liver Right malignant pleural effusion CAD s/p PCI in the -amiodarone 400mg PO BID x 1 week (01/21), then 200mg PO BID x 1 week (01/28), then 200mg daily -lasix 40mg daily -metoprolol succ 25mg daily -ok for d/c from cardiac perspective with above meds Consultation Date/Type/Reason Admit Date/Time Jan 13, 2019 at 12:06 Initial Consult Date 01/13/19 Type of Consult Cardiology Requesting Provider: LESLIE CESAR MD Date/Time of Note DATE: 01/17/19 TIME: 07:29 24 HR Interval Summary Free Text/Dictation No events. Awaiting SNF placement Exam/Review of Systems Vital Signs Vitals Vital Signs Date Temp Pulse Resp B/P (MAP) Pulse Ox O2 O2 Flow FiO2 Time Delivery Rate 01/17/19 98.1 89 18 133/60 94 04:35 (84) 01/17/19 3.0 00:27 01/16/19 Nasal 20:00 Cannula 01/13/19 21 11:02 Intake and Output 01/16/19 01/16/19 01/17/19 1515:00 23:00 07:00 IntakeIntake Total 480 ml 480 ml OutputOutput Total 200 ml BalanceBalance 280 ml 480 ml Exam Constitutional: alert, oriented Psych: no complaints, nl mood/affect Head: normocephalic, atraumatic Neck: No jvd Respiratory: diminished breath sounds; No clear to auscultation, No crackles/rales Cardiovascular: regular rate and rhythm, edema (trace), systolic murmur (2/6 CHICO) Gastrointestinal: soft, non-tender; No distended Neurological: nl mental status, nl speech Labs Result Diagram: 01/14/19 1447 01/14/19 1447 Medications Medications Current Medications IV Flush (NS 3 ml) 3 ml PER PROTOCOL IV ; Start 01/13/19 at 14:30 Ondansetron HCl (Zofran Inj) 4 mg Q6H PRN IV NAUSEA/VOMITING; Start 01/13/19 at 14:30 Pantoprazole (Protonix Tab) 40 mg DAILY@06 PO Last administered on 01/17/19 05:42; Admin Dose 40 MG; Start 01/14/19 at 06:00 Senna (Senokot) 2 tab BID PRN PO CONSTIPATION; Start 01/13/19 at 14:30 Albuterol (Proventil 0.083% (Neb)) 2.5 mg Q4H RESP THERAPY PRN NEB SHORTNESS OF BREATH Last administered on 01/13/19 22:10; Admin Dose 2.5 MG; Start 01/13/19 at 14:30 Aspirin (Aspirin) 81 mg DAILY PO Last administered on 01/16/19 09:04; Admin Dose 81 MG; Start 01/14/19 at 09:00 Bisacodyl (Dulcolax Supp) 10 mg DAILY PRN [place] constipation; Start 01/13/19 at 14:30 Fentanyl (Duragesic 12 Mcg/Hr Patch) 1 patch Q72H TRANSDERM Last administered on 01/16/19 16:51; Admin Dose 1 PATCH; Start 01/13/19 at 14:30 Folic Acid (Folic Acid) 1 mg DAILY PO Last administered on 01/16/19 09:04; Admin Dose 1 MG; Start 01/14/19 at 09:00 Acetaminophen/ Hydrocodone Bitart ([place] (5/325)) 1 tab Q4H PRN PO PAIN LEVEL 6-10 Last administered on 01/17/19 01:43; Admin Dose 1 TAB; Start 01/13/19 at 14:30 Magnesium Hydroxide (Milk Of Mag) 30 ml DAILY PO Last administered on 01/16/19 09:04; Admin Dose 30 ML; Start 01/14/19 at 09:00 Miscellaneous Information 1 each DAILY INHALATION ; Start 01/14/19 at 09:00; Status UNV Miscellaneous Information (Pending Santyl Order For Wound Care) This patient arias... PRN PRN XX WOUND CARE; Start 01/14/19 at 04:00 Amiodarone HCl (Cordarone) 400 mg BID PO Last administered on 01/16/19 21:16; Admin Dose 400 MG; Start 01/14/19 at 10:30 Miscellaneous Information (*Order Clarification Bulletin) Umeclidinium Brm- Vilanterol Tr (An... Q8H XX ; Start 01/14/19 at 15:30 Metoprolol Succinate (Toprol Xl) 25 mg DAILY PO Last administered on 01/16/19at 09:05; Admin Dose 25 MG; Start 01/15/19 at 09:00 Furosemide (Lasix) 40 mg DAILY PO Last administered on 01/16/19at 09:04; Admin Dose 40 MG; Start 01/15/19 at 09:00 PAULA PRATHER Jan 17, 2019 07:30
[2019-01-17 07:43] VITALS: BP 110/60; PULSE 92; RESP 18
[2019-01-17] MEDS: MAGNESIUM HYDROXIDE 30ML CUP PO SCH (09:00)
[2019-01-17] MEDS: AMIODARONE 200 MG TAB PO SCH ×2 (09:13→20:53)
[2019-01-17] MEDS: ASPIRIN 81 MG TAB PO SCH (09:13)
[2019-01-17] MEDS: METOPROLOL (XL) 25 MG TAB PO SCH (09:13)
[2019-01-17] MEDS: FUROSEMIDE 40 MG TAB PO SCH (09:13)
[2019-01-17] MEDS: FOLIC ACID 1 MG TAB PO SCH (09:13)
[2019-01-17 12:04] VITALS: BP 119/56; PULSE 86; RESP 17
--- NOTE | 2019-01-17 12:08 | PDOCDIS ---
Discharge Instructions CONDITION [id number] Patient Condition: [id number] Stable ZAIDA DECKER Jan 17, 2019 12:08
--- NOTE | 2019-01-17 12:19 | DS ---
Date/Time of Note Date/Time of Note DATE: 01/17/19 TIME: 12:08 Discharge Summary Admission/Discharge Info Admit Date/Time Jan 13, 2019 at 12:06 Discharge Date/Time Discharge Diagnosis #Rapid A flutter: Resolved now. #Metastatic cancer - Follows Dr. Montoya at [facility] - Last chemotherapy was 3 months ago. #R pleural effusion #COPD Patient Condition: Stable Procedures 2D echo 01/13/19: Conclusions: Normal left ventricular systolic function. Normal left ventricular cavity size. Mild concentric left ventricular hypertrophy. Ejection fraction is visually estimated at 60 %. Tissue Doppler/Mitral Doppler indices are consistent with impaired relaxation (Stage I diastolic dysfunction). No significant valvular stenosis or regurgitation seen. Small anterior pericardial effusion seen in subcostal views. The estimated Peak RVSP is 33 mmHg. Dilated IVC with respiratory collapse consistent with elevated right atrial pressure. Hx of Present Illness 73 yo man with metastatic cancer who presents from [facility] with A flutter with rapid rate. The patient is confused, he gave some history but most was taken from his son Eliezer at bedside. He has a metastatic cancer of unknown primary in the liver, brain, and lungs. He gets most of his care at [facility], his oncologist is Dr. Montoya. He got brain radiation and he had been on palliative chemotherapy but this was stopped 3 months ago. About three weeks ago was his most recent hospitalization at [facility] for a broken R collarbone. This was handled nonsurgically. His primary care doctor is Dr. Consuelo Ascencio. He was discharged to [facility] about 2 weeks ago. Previously he had lived with his sister and his son at home. The patient reports for about 1 week he gets intermittent episodes of palpitations which begin and self-resolve. He also reports increasing difficulty with swallowing. Today at the SNF he was noted to have a very rapid heart rate and had palpitations, so was sent to the emergency room. The patient also reports occasional dry cough. In the ED he was afebrile, tachy to 141, tachypenic to 26, BP 123/68. Troponin was negative. CBC and BMP unremarkable. CXR shows R pleural effusion. I spoke to the patient and his son Eliezer about his prognosis. The patient does have a signed POLST in the chart saying full code, and the patient confirmed he still wants this to be the case. There is some belief that they're waiting for the patient to "get stronger" off chemotherapy and maybe get another round in the future. The patient confirmed he wants his two adult children, Eliezer and Sharon, to be his medical decisionmakers in the event he is unable to. Hospital Course Patient was admitted to telemetry floor and seen by cardiology during this hospi serina stay. He was treated for new onset of A. fib and a flutter. His heart rate was monitored and it became rate controlled after appropriate cardiac medications were given. Home Meds Reported Medications Mineral Oil* (Fleet* Mineral Oil Enema) 133 Ml Oil, 133 ML [place] DAILY PRN for BOWEL PREP, ENEMA 01/13/19 Bisacodyl (Dulcolax) 10 Mg Supp.rect, 10 MG RC, SUPP.RECT 01/13/19 Magnesium Hydroxide* (Milk Of Magnesia*) 400 Mg/5 Ml Oral.susp, 30 ML PO DAILY, ML 01/13/19 Hydrocodone/Acetaminophen ([place] 5-325 Tablet) 1 Each Tablet, 1 EACH PO Q4 PRN for PAIN LEVEL 6-10, TAB 01/13/19 Ferrous Sulfate* (Ferrous Sulfate*) 325 Mg Tabec, 325 MG PO DAILY, TAB 01/13/19 Lactose-Free Food (Nutritional Supplement) 237 Ml Liquid, 60 ML PO TID 01/13/19 Acetaminophen* (Acetaminophen*) 325 Mg Tablet, 650 MG PO Q4H PRN for PAIN AND OR ELEVATED TEMP, #30 TAB 01/13/19 Vitamin E Acid Succinate (Vitamin E) 100 Unit Tablet, 200 UNIT PO DAILY, TAB 01/13/19 Umeclidinium Brm-Vilanterol Tr (Anoro Ellipta) 62.5-25 Mcg Disk.w.dev, 1 EACH INHALATION DAILY, #1 DISK 01/13/19 Prochlorperazine* (Prochlorperazine*) 10 Mg Tablet, 10 MG PO Q6H PRN for NAUSEA, TAB 01/13/19 Potassium Chloride* (Potassium Chloride*) 20 Meq Tablet.er, 20 MEQ PO DAILY, TAB.SA 01/13/19 Ondansetron (Ondansetron Odt) 8 Mg Tab.rapdis, 8 MG PO Q8 PRN for NAUSEA AND/OR VOMITING, TAB 01/13/19 Magnesium Oxide* (Magnesium Oxide*) 400 Mg Tablet, 800 MG PO DAILY, TAB 01/13/19 [Ipratropium Neb] No Conflict Check, 0.5 MG NEB Q4 PRN for SHORTNESS OF BREATH 01/13/19 Furosemide* (Furosemide*) 40 Mg Tablet, 40 MG PO DAILY, TAB 01/13/19 Folic Acid* (Folic Acid*) 1 Mg Tablet, 1 MG PO DAILY, TAB 01/13/19 Fentanyl Patch* (Duragesic Patch*) 12 Mcg/Hr Transdermal Patch, 1 PATCH TD Q72H, PATCH 01/13/19 Aspirin* (Aspirin* Chew) 81 Mg Tab.chew, 81 MG PO DAILY, TAB.CHEW 01/13/19 Albuterol Sulfate* (Albuterol Sulfate* Neb) 0.083%-3 Ml Neb, 2.5 MG NEB Q4H PRN for SHORTNESS OF BREATH, #30 VIAL 01/13/19 Primary Care Provider Consuelo Ascencio Time spent on discharge: > 30 minutes ZAIDA DECKER Jan 17, 2019 12:19
[2019-01-17 16:00] VITALS: BP 115/58; PULSE 82; RESP 17
[2019-01-17 19:57] VITALS: BP 127/67; PULSE 87; RESP 20
[2019-01-18 00:41] VITALS: BP 115/57; PULSE 84; RESP 18
[2019-01-18] MEDS: PANTOPRAZOLE (EC) 40 MG TAB PO SCH (06:08)
[2019-01-18 07:12] VITALS: BP 122/60; PULSE 89; RESP 18
[2019-01-18] MEDS: [UNRECOGNIZED DRUG - OTHER] XX SCH ×2 (07:30→15:30)
--- NOTE | 2019-01-18 08:05 | CONS ---
Assessment/Plan Assessment/Plan Hospital Course (Demo Recall) New onset atrial fibrillation/flutter: He is a good candidate for amiodarone especially with his underlying metastatic lung cancer and short life expectancy. Not an anticoagulation candidate with brain mets. Now in sinus after amiodarone Acute on chronic diastolic CHF: EF preserved. On lasix at baseline. Mild CHF on exam in setting of afib. Resolved Lung cancer with mets to brain/liver Right malignant pleural effusion CAD s/p PCI in the -amiodarone 400mg PO BID x 1 week (01/21), then 200mg PO BID x 1 week (01/28), then 200mg daily -lasix 40mg daily -metoprolol succ 25mg daily -ok for d/c from cardiac perspective with above meds Consultation Date/Type/Reason Admit Date/Time Jan 13, 2019 at 12:06 Initial Consult Date 01/13/19 Type of Consult Cardiology Requesting Provider: LESLIE CESAR MD Date/Time of Note DATE: 01/18/19 TIME: 08:04 24 HR Interval Summary Free Text/Dictation No events. Still awaiting transfer Exam/Review of Systems Vital Signs Vitals Vital Signs Date Temp Pulse Resp B/P (MAP) Pulse Ox O2 O2 Flow FiO2 Time Delivery Rate 01/18/19 98.6 89 18 122/60 94 Room Air 07:12 (80) 01/17/19 21 23:16 01/17/19 2.0 10:30 Intake and Output 01/17/19 01/17/19 01/18/19 1515:00 23:00 07:00 IntakeIntake Total 780 ml 310 ml 540 ml OutputOutput Total 300 ml 150 ml 200 ml BalanceBalance 480 ml 160 ml 340 ml Exam Constitutional: alert, oriented Psych: no complaints, nl mood/affect Neck: jvd (7-8cm) Respiratory: diminished breath sounds; No clear to auscultation Cardiovascular: regular rate and rhythm, edema (trace) Gastrointestinal: soft, non-tender; No distended Neurological: nl mental status, nl speech Labs Result Diagram: 01/14/19 1447 01/14/19 1447 Medications Medications Current Medications IV Flush (NS 3 ml) 3 ml PER PROTOCOL IV ; Start 01/13/19 at 14:30 Ondansetron HCl (Zofran Inj) 4 mg Q6H PRN IV NAUSEA/VOMITING; Start 01/13/19 at 14:30 Pantoprazole (Protonix Tab) 40 mg DAILY@06 PO Last administered on 01/18/19 06:08; Admin Dose 40 MG; Start 01/14/19 at 06:00 Senna (Senokot) 2 tab BID PRN PO CONSTIPATION; Start 01/13/19 at 14:30 Albuterol (Proventil 0.083% (Neb)) 2.5 mg Q4H RESP THERAPY PRN NEB SHORTNESS OF BREATH Last administered on 01/13/19 22:10; Admin Dose 2.5 MG; Start 01/13/19 at 14:30 Aspirin (Aspirin) 81 mg DAILY PO Last administered on 01/17/19 09:13; Admin Dose 81 MG; Start 01/14/19 at 09:00 Bisacodyl (Dulcolax Supp) 10 mg DAILY PRN [place] constipation; Start 01/13/19 at 14:30 Fentanyl (Duragesic 12 Mcg/Hr Patch) 1 patch Q72H TRANSDERM Last administered on 01/16/19 16:51; Admin Dose 1 PATCH; Start 01/13/19 at 14:30 Folic Acid (Folic Acid) 1 mg DAILY PO Last administered on 01/17/19 09:13; Admin Dose 1 MG; Start 01/14/19 at 09:00 Acetaminophen/ Hydrocodone Bitart ([place] (5/325)) 1 tab Q4H PRN PO PAIN LEVEL 6-10 Last administered on 01/17/19 20:52; Admin Dose 1 TAB; Start 01/13/19 at 14:30 Magnesium Hydroxide (Milk Of Mag) 30 ml DAILY PO Last administered on 01/16/19 09:04; Admin Dose 30 ML; Start 01/14/19 at 09:00 Miscellaneous Information 1 each DAILY INHALATION ; Start 01/14/19 at 09:00; Status UNV Miscellaneous Information (Pending Santyl Order For Wound Care) This patient arias... PRN PRN XX WOUND CARE; Start 01/14/19 at 04:00 Amiodarone HCl (Cordarone) 400 mg BID PO Last administered on 01/17/19 20:53; Admin Dose 400 MG; Start 01/14/19 at 10:30 Miscellaneous Information (*Order Clarification Bulletin) Umeclidinium Brm- Vilanterol Tr (An... Q8H XX ; Start 01/14/19 at 15:30 Metoprolol Succinate (Toprol Xl) 25 mg DAILY PO Last administered on 01/17/19at 09:13; Admin Dose 25 MG; Start 01/15/19 at 09:00 Furosemide (Lasix) 40 mg DAILY PO Last administered on 01/17/19 09:13; Admin Dose 40 MG; Start 01/15/19 at 09:00 PAULA PRATHER Jan 18, 2019 08:05
[2019-01-18] MEDS: FUROSEMIDE 40 MG TAB PO SCH (09:53)
[2019-01-18] MEDS: AMIODARONE 200 MG TAB PO SCH (09:56)
[2019-01-18] MEDS: METOPROLOL (XL) 25 MG TAB PO SCH (09:57)
[2019-01-18] MEDS: ASPIRIN 81 MG TAB PO SCH (09:57)
[2019-01-18] MEDS: FOLIC ACID 1 MG TAB PO SCH (09:57)
[2019-01-18] MEDS: MAGNESIUM HYDROXIDE 30ML CUP PO SCH (09:57)
[2019-01-18] MEDS: HYDROCODONE/APAP (5/325) TAB PO PRN ×2 (09:59→13:07)
[2019-01-18] MEDS ORDERED: HYDROmorphONE 2 MG TAB PO PRN (11:30)
[2019-01-18] MEDS ORDERED: POTASSIUM CHLORIDE (SR) 20 MEQ TAB PO STA (11:41)
--- NOTE | 2019-01-18 11:42 | DS ---
Date/Time of Note Date/Time of Note DATE: 01/18/19 TIME: 11:40 Discharge Summary Admission/Discharge Info Admit Date/Time Jan 13, 2019 at 12:06 Discharge Date/Time Discharge Diagnosis #Rapid A flutter: Resolved now. #Metastatic cancer - Follows Dr. Montoya at [facility] - Last chemotherapy was 3 months ago. #R pleural effusion #COPD Patient Condition: Stable Hx of Present Illness 73 yo man with metastatic cancer who presents from SNF with A flutter with rapid rate. The patient is confused, he gave some history but most was taken from his son Eliezer at bedside. He has a metastatic cancer of unknown primary in the liver, brain, and lungs. He gets most of his care at [facility], his oncologist is Dr. Montoya. He got brain radiation and he had been on palliative chemotherapy but this was stopped 3 months ago. About three weeks ago was his most recent hospitalization at [facility] for a broken R collarbone. This was handled nonsurgically. His primary care doctor is Dr. Consuelo Ascencio. He was discharged to [facility] about 2 weeks ago. Previously he had lived with his sister and his son at home. The patient reports for about 1 week he gets intermittent episodes of palpitations which begin and self-resolve. He also reports increasing difficulty with swallowing. Today at the SNF he was noted to have a very rapid heart rate and had palpitations, so was sent to the emergency room. The patient also reports occasional dry cough. In the ED he was afebrile, tachy to 141, tachypenic to 26, BP 123/68. Troponin was negative. CBC and BMP unremarkable. CXR shows R pleural effusion. I spoke to the patient and his son Eliezer about his prognosis. The patient does have a signed POLST in the chart saying full code, and the patient confirmed he still wants this to be the case. There is some belief that they're waiting for the patient to "get stronger" off chemotherapy and maybe get another round in the future. The patient confirmed he wants his two adult children, Eliezer and Sharon, to be his medical decisionmakers in the event he is unable to. Hospital Course Patient was admitted to telemetry floor and seen by cardiology during this hospital stay. He was treated for new onset of A. fib and a flutter. His heart rate was monitored and it became rate controlled after appropriate cardiac medications were given. Patient is medically ready for discharge back to [facility] facility. This was supposed to happen on January 17, 2019, however the bed was not available at the patient's original [facility] facility. However today on January 18, 2019 the case management team is informed us that the bed is available so patient will be discharged there today in improved condition. Vitals are stable, patient is tolerating diet. See printed medicine reconciliation sheet for full list of discharge medications. Home Meds Reported Medications Mineral Oil* (Fleet* Mineral Oil Enema) 133 Ml Oil, 133 ML [place] DAILY PRN for BOWEL PREP, ENEMA 01/13/19 Bisacodyl (Dulcolax) 10 Mg Supp.rect, 10 MG RC, SUPP.RECT 01/13/19 Magnesium Hydroxide* (Milk Of Magnesia*) 400 Mg/5 Ml Oral.susp, 30 ML PO DAILY, ML 01/13/19 Hydrocodone/Acetaminophen ([place] 5-325 Tablet) 1 Each Tablet, 1 EACH PO Q4 PRN for PAIN LEVEL 6-10, TAB 01/13/19 Ferrous Sulfate* (Ferrous Sulfate*) 325 Mg Tabec, 325 MG PO DAILY, TAB 01/13/19 Lactose-Free Food (Nutritional Supplement) 237 Ml Liquid, 60 ML PO TID 01/13/19 Acetaminophen* (Acetaminophen*) 325 Mg Tablet, 650 MG PO Q4H PRN for PAIN AND OR ELEVATED TEMP, #30 TAB 01/13/19 Vitamin E Acid Succinate (Vitamin E) 100 Unit Tablet, 200 UNIT PO DAILY, TAB 01/13/19 Umeclidinium Brm-Vilanterol Tr (Anoro Ellipta) 62.5-25 Mcg Disk.w.dev, 1 EACH INHALATION DAILY, #1 DISK 01/13/19 Prochlorperazine* (Prochlorperazine*) 10 Mg Tablet, 10 MG PO Q6H PRN for NAUSEA, TAB 01/13/19 Potassium Chloride* (Potassium Chloride*) 20 Meq Tablet.er, 20 MEQ PO DAILY, TAB.SA 01/13/19 Ondansetron (Ondansetron Odt) 8 Mg Tab.rapdis, 8 MG PO Q8 PRN for NAUSEA AND/OR VOMITING, TAB 01/13/19 Magnesium Oxide* (Magnesium Oxide*) 400 Mg Tablet, 800 MG PO DAILY, TAB 01/13/19 [Ipratropium Neb] No Conflict Check, 0.5 MG NEB Q4 PRN for SHORTNESS OF BREATH 01/13/19 Furosemide* (Furosemide*) 40 Mg Tablet, 40 MG PO DAILY, TAB 01/13/19 Folic Acid* (Folic Acid*) 1 Mg Tablet, 1 MG PO DAILY, TAB 01/13/19 Fentanyl Patch* (Duragesic Patch*) 12 Mcg/Hr Transdermal Patch, 1 PATCH TD Q72H, PATCH 01/13/19 Aspirin* (Aspirin* Chew) 81 Mg Tab.chew, 81 MG PO DAILY, TAB.CHEW 01/13/19 Albuterol Sulfate* (Albuterol Sulfate* Neb) 0.083%-3 Ml Neb, 2.5 MG NEB Q4H PRN for SHORTNESS OF BREATH, #30 VIAL 01/13/19 Primary Care Provider Consuelo Ascencio Time spent on discharge: > 30 minutes ZAIDA DECKER Jan 18, 2019 11:42
[2019-01-18] MEDS ORDERED: POTASSIUM CHLORIDE 20 MEQ POWDER FOR ORAL SOLN PO ONE (12:30)
[2019-01-18 13:05] VITALS: BP 117/61; PULSE 82; RESP 18
[2019-01-18] MEDS ORDERED: HYDROmorphONE 2 MG TAB PO ONE (13:30)
== END 2019-01-18 18:26 | DRG 308 ==
LOC: E/R 10:09 → TEL 12:06 → MS1 01-18 00:20
PROVIDERS: ADMIT Internal Medicine; ATTEND Hospitalist
DX: I48.92 Unspecified atrial flutter (principal); I50.23 Acute on chronic systolic (congestive) heart failure; J91.0 Malignant pleural effusion; C78.7 Secondary malignant neoplasm of liver and intrahepatic bile duct; C78.00 Secondary malignant neoplasm of unspecified lung; C79.31 Secondary malignant neoplasm of brain; J44.1 Chronic obstructive pulmonary disease with (acute) exacerbation; E87.70 Fluid overload, unspecified; C80.1 Malignant (primary) neoplasm, unspecified; R54 Age-related physical debility; I25.10 Atherosclerotic heart disease of native coronary artery without angina pectoris; S42.001A Fracture of unspecified part of right clavicle, initial encounter for closed fracture; G89.3 Neoplasm related pain (acute) (chronic); Z87.891 Personal history of nicotine dependence; Z95.5 Presence of coronary angioplasty implant and graft
CPT/HCPCS: 36415; 71045; 80048; 80053; 81003; 83036; 83605; 83735; 83880; 84100; 84443; 84484; 85025; 85610; 87081; 87086; 92526; 92610; 93005; 93306; 93971; 94644; 94664; 96361; 96374; 96375; 97162; 97530; A4310; J0282; J0456; J0696; J1170; J1650; J1940; J7030; J7060

== ENCOUNTER 2019-02-03 21:36 | Inpatient (IN) | payer MEDICARE, OTHER ==
[~2019-02-03] VITALS: Ht 185.4 cm; Wt 73.7 kg
[~2019-02-03 21:36] MED LIST changes: +AMIO200T4 PO; +ASCO500C7 PO; +ETOMIDATE 20 MG INJ ONE; +FURO40SO PO; +HYDR2TAB3 PO; +METO-335 PO; +MULT-105 PO; +PANT40TA4 PO; +ROCURONIUM 50 MG INJ ONE
[2019-02-03] MEDS ORDERED: PROPOFOL 100 ML IV STA (21:51)
[2019-02-03] MEDS ORDERED: metroNIDAZOLE 500 MG/NS (PMX) 100 ML IVPB STA (21:51)
[2019-02-03] MEDS ORDERED: SODIUM CHLORIDE 0.9% 1L BAG IV* STA (21:51)
[2019-02-03] MEDS ORDERED: VANCOMYCIN 1 GM (PMX) 250 ML IVPB STA (21:51)
[2019-02-03] MEDS ORDERED: CEFEPIME 2GM/50 ML (PMX) 50 ML IVPB STA (21:51)
[2019-02-03] MEDS ORDERED: NORepinephrine 8MG/250 ML (PMX 250 ML IV STA (22:21)
[2019-02-03] MEDS ORDERED: MIDAZOLAM 1 MG/ML 2 ML INJ ONE (22:21)
[2019-02-03] MEDS ORDERED: ACETAMINOPHEN 650MG/20.3ML CUP NGT STA (22:21)
[2019-02-03] MEDS ORDERED: MIDAZOLAM 1 MG/ML 2 ML INJ IV ONE (22:30)
[2019-02-04] VITALS (88 sets, daily range): BP systolic 66–118; BP diastolic 43–80; PULSE 106–136; RESP 20–28; Ht 185.4 cm; Wt 73.7 kg
[2019-02-04] MEDS: DEXTROSE 5%-0.45% NACL 1,000 ML IV SCH ×3 (00:57→20:43)
[2019-02-04] MEDS ORDERED: IPRATROPIUM (HFA) 12.9 GM INHALER INH PRN (01:00)
[2019-02-04] MEDS ORDERED: ONDANSETRON 4 MG INJ IV PRN (01:00)
[2019-02-04] MEDS ORDERED: ALBUTEROL HFA 8 GM INHALER INH PRN (01:00)
[2019-02-04] MEDS ORDERED: ACETAMINOPHEN 650MG/20.3ML CUP PO PRN (01:00)
[2019-02-04] MEDS ORDERED: PHENYLephrine 20MG IN 250 ML 250 ML ONE ×2 (04:13→08:22)
[2019-02-04] MEDS ORDERED: SOD CHLORIDE 0.9% 500 ML IV ONE (04:30)
[2019-02-04] MEDS: ASPIRIN 81 MG TAB PO SCH ×2 (04:54→08:42)
[2019-02-04] MEDS: PIPER-TAZO 3.375 GM IV (PMX) 100 ML IVPB SCH ×3 (05:21→17:26)
[2019-02-04] MEDS: PANTOPRAZOLE 40 MG INJ IV SCH (05:21)
[2019-02-04] MEDS ORDERED: VANCOMYCIN 1.5 GM/NS 250 ML 250 ML IVPB ONE (07:00)
[2019-02-04] MEDS: AMIODARONE 200 MG TAB PO SCH (08:43)
[2019-02-04] MEDS ORDERED: VANCOMYCIN IV PER PHARMACY XX SCH (09:00)
[2019-02-04] MEDS: HEPARIN 5,000 UNIT/1 ML VIAL SC SCH ×2 (12:13→20:58)
[2019-02-04] MEDS: PHENYLephrine 80 MG in DEXTROSE 5% 242 ML IV SCH ×3 (13:01→22:02)
[2019-02-04] MEDS: NORepinephrine 32 MG in DEXTROSE 5% 218 ML IV SCH (13:11)
[2019-02-04] MEDS: VASOPRESSIN 60 UNIT in DEXTROSE 5% 57 ML IV SCH ×2 (14:00→20:59)
[2019-02-04] MEDS ORDERED: VANCOMYCIN 1.5 GM/NS 250 ML 250 ML IVPB SCH (16:00)
[2019-02-04] MEDS ORDERED: VANCOMYCIN 1 GM 250 ML IVPB SCH (19:00)
[2019-02-05] VITALS (104 sets, daily range): BP systolic 60–171; BP diastolic 44–137; PULSE 128–145; RESP 16–39
[2019-02-05] MEDS: PIPER-TAZO 3.375 GM IV (PMX) 100 ML IVPB SCH ×4 (00:30→18:19)
[2019-02-05] MEDS: DEXTROSE 5%-0.45% NACL 1,000 ML IV SCH ×2 (01:39→15:42)
[2019-02-05] MEDS: PHENYLephrine 80 MG in DEXTROSE 5% 242 ML IV SCH ×4 (02:20→15:52)
[2019-02-05] MEDS: NORepinephrine 32 MG in DEXTROSE 5% 218 ML IV SCH (03:26)
[2019-02-05] MEDS: PANTOPRAZOLE 40 MG INJ IV SCH (06:11)
[2019-02-05] MEDS: AMIODARONE 200 MG TAB PO SCH (09:00)
[2019-02-05] MEDS: ASPIRIN 81 MG TAB PO SCH (09:00)
[2019-02-05] MEDS: HEPARIN 5,000 UNIT/1 ML VIAL SC SCH ×2 (09:26→20:47)
[2019-02-05] MEDS: ACETAMINOPHEN 650 MG SUPP PR PRN ×2 (09:29→16:14)
[2019-02-05] MEDS ORDERED: CALCIUM GLUCONATE 10% 2 GM in DEXTROSE 5% 100 ML IVPB ONE (12:30)
[2019-02-05] MEDS: VASOPRESSIN 60 UNIT in DEXTROSE 5% 57 ML IV SCH (14:00)
[2019-02-05] MEDS: ARTIFICIAL TEARS 15 ML OPH BOTH EYES SCH (20:43)
[2019-02-05] MEDS: NORepinephrine 32 MG in SOD CHLORIDE 0.9% 218 ML IV SCH (20:47)
[2019-02-05] MEDS: VASOPRESSIN 60 UNIT in SOD CHLORIDE 0.9% 57 ML IV SCH (20:47)
[2019-02-05] MEDS: PHENYLephrine 80 MG in SOD CHLORIDE 0.9% 242 ML IV SCH (20:47)
[2019-02-06] VITALS (90 sets, daily range): BP systolic 61–107; BP diastolic 44–88; PULSE 130–145; RESP 11–44
[2019-02-06] MEDS: PIPER-TAZO 3.375 GM IV (PMX) 100 ML IVPB SCH ×3 (00:34→11:30)
[2019-02-06] MEDS: PHENYLephrine 80 MG in SOD CHLORIDE 0.9% 242 ML IV SCH ×3 (00:36→09:41)
[2019-02-06] MEDS: DEXTROSE 5%-0.45% NACL 1,000 ML IV SCH (03:42)
[2019-02-06] MEDS: PANTOPRAZOLE 40 MG INJ IV SCH (05:33)
[2019-02-06] MEDS ORDERED: ALTEPLASE (CATHFLO) 2 MG INJ CATHETER PRN (06:00)
[2019-02-06] MEDS ORDERED: DEXTROSE 5%-0.9% NACL 1,000 ML IV SCH (06:30)
[2019-02-06] MEDS: VASOPRESSIN 60 UNIT in SOD CHLORIDE 0.9% 57 ML IV SCH (08:00)
[2019-02-06] MEDS: ARTIFICIAL TEARS 15 ML OPH BOTH EYES SCH ×2 (08:51→12:48)
[2019-02-06] MEDS: HEPARIN 5,000 UNIT/1 ML VIAL SC SCH (08:55)
[2019-02-06] MEDS: ASPIRIN 81 MG TAB PO SCH (09:00)
[2019-02-06] MEDS ORDERED: VANCOMYCIN 1 GM 250 ML IVPB SCH (09:00)
[2019-02-06] MEDS: AMIODARONE 200 MG TAB PO SCH (09:00)
[2019-02-06] MEDS ORDERED: DEXTROSE 50% 50 ML SYRINGE IV PRN ×2 (09:30)
[2019-02-06] MEDS ORDERED: morphine 2 MG INJ IV PRN (09:30)
[2019-02-06] MEDS ORDERED: GLUCAGON 1 MG INJ IM PRN (09:30)
[2019-02-06] MEDS ORDERED: GLUCOSE GEL 15 GRAM TUBE PO PRN ×2 (09:30)
[2019-02-06] MEDS ORDERED: GLUCOSE GEL 15 GRAM TUBE BUCCAL PRN (09:30)
[2019-02-06] MEDS ORDERED: HYDROCORTISONE 100 MG INJ IV SCH (12:00)
[2019-02-06] MEDS ORDERED: FENTAnyl (DRIP) 1000 mcg/100mL 100 ML IV SCH (12:00)
[2019-02-06] MEDS ORDERED: INSULIN ASPART [NOVOLOG] 3 ML PEN SC SCH (12:00)
[2019-02-06] MEDS: NORepinephrine 32 MG in SOD CHLORIDE 0.9% 218 ML IV SCH ×2 (13:13→14:19)
[2019-02-06] MEDS ORDERED: metroNIDAZOLE 500 MG/NS (PMX) 100 ML IVPB SCH (14:00)
[2019-02-06] MEDS ORDERED: morphine (DRIP) 100 MG/100 ML 100 ML IV SCH (19:00)
== END 2019-02-06 21:13 | disposition expired | DRG 871 ==
LOC: E/R 21:36 → ICU 23:58
PROVIDERS: ADMIT Internal Medicine; ATTEND Internal Medicine
PROC: 5A1945Z Respiratory Ventilation, 24-96 Consecutive Hours (ICD-10-PCS; principal; 2019-02-03)
PROC: 0BH17EZ Insertion of Endotracheal Airway into Trachea, Via Natural or Artificial Opening (ICD-10-PCS; 2019-02-03)
PROC: 02HV33Z Insertion of Infusion Device into Superior Vena Cava, Percutaneous Approach (ICD-10-PCS; 2019-02-03)
PROC: B544ZZA Ultrasonography of Left Jugular Veins, Guidance (ICD-10-PCS; 2019-02-03)
PROC: 4A133R1 Monitoring of Arterial Saturation, Peripheral, Percutaneous Approach (ICD-10-PCS; 2019-02-03)
DX: A41.1 Sepsis due to other specified staphylococcus (principal); R65.21 Severe sepsis with septic shock; J96.01 Acute respiratory failure with hypoxia; G92 Toxic encephalopathy; A04.72 Enterocolitis due to Clostridium difficile, not specified as recurrent; C78.7 Secondary malignant neoplasm of liver and intrahepatic bile duct; C78.5 Secondary malignant neoplasm of large intestine and rectum; C79.31 Secondary malignant neoplasm of brain; I50.32 Chronic diastolic (congestive) heart failure; E87.1 Hypo-osmolality and hyponatremia; N17.9 Acute kidney failure, unspecified; I48.92 Unspecified atrial flutter; E87.4 Mixed disorder of acid-base balance; C78.00 Secondary malignant neoplasm of unspecified lung; Z51.5 Encounter for palliative care; Z66 Do not resuscitate; C80.1 Malignant (primary) neoplasm, unspecified; F03.90 Unspecified dementia, unspecified severity, without behavioral disturbance, psychotic disturbance, mood disturbance, and anxiety; I11.0 Hypertensive heart disease with heart failure; I25.10 Atherosclerotic heart disease of native coronary artery without angina pectoris; I48.91 Unspecified atrial fibrillation; Z95.5 Presence of coronary angioplasty implant and graft; Z79.82 Long term (current) use of aspirin
CPT/HCPCS: 31500; 36415; 36600; 71045; 76942; 80048; 80053; 80202; 81001; 81003; 82565; 82803; 82962; 83036; 83605; 83735; 84100; 84155; 84300; 84484; 84520; 85025; 85610; 85730; 86850; 86900; 86901; 87045; 87075; 87081; 87086; 93005; 94002; 94003; 94770; 96365; 96366; 96368; C9113; J0610; J0692; J1644; J1720; J1815; J2250; J2270; J2370; J2543; J3010; J3370; J7030; J7040; J7042; J7050; J7070